=== PATIENT | male | born 1950 | race Caucasian/White ===

== ENCOUNTER 2020-12-16 09:25 | Outpatient (CLI) | payer MEDICARE, OTHER, SELFPAY ==
--- NOTE | 2020-12-16 09:30 | US_ITS ---
WS: [id number] RIGHT UPPER QUADRANT ULTRASOUND HISTORY: Abdominal pain. COMPARISON: None available. Liver: 16.3 cm in length. Mildly enlarged liver. Coarsened echotexture with mild hepatic steatosis. N o mass or bile duct dilatation. Gallbladder: Normally distended gallbladder with no stones or wall thickening. CBD: 0.3 cm Pancreas: Not visualized. Right kidney: 10.2 cm in length. Normal size and echogenicity. No hydronephrosis or mass. Aorta and IVC: Unremarkable abdominal aorta and IVC. No ascites. US/US gall bladder [id number] IMPRESSION: 1. Normal gallbladder. 2. Mild hepatomegaly and hepatic steatosis. 3. Pancreas not visualized.
== END 2020-12-16 09:26 | disposition home or self-care (01) ==
LOC: US 09:27
PROVIDERS: PCP Nurse Practitioner Family; Visit Provider Nurse Practitioner Family
DX: R10.9 Unspecified abdominal pain (principal); K80.20 Calculus of gallbladder without cholecystitis without obstruction; K21.9 Gastro-esophageal reflux disease without esophagitis; R16.0 Hepatomegaly, not elsewhere classified; E88.89 Other specified metabolic disorders
CPT/HCPCS: 76705

== ENCOUNTER 2021-04-03 17:29 | Emergency (ER) | payer MEDICARE, OTHER, SELFPAY ==
[2021-04-03 17:39] VITALS: BP 198/92; PULSE 80; RESP 18; TEMP 37; O2SAT 93; BMI 26.9
--- NOTE | 2021-04-03 17:57 | ECG_ITS ---
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 Measurements Intervals [place] Rate: 78 P: 71 DE: 170 QRS: 49 QRSD: 121 T: 58 QT: 388 QTc: 444 Interpretive Statements SINUS RHYTHM RIGHT ATRIAL ENLARGEMENT [0.3mV P WAVE] LEFT ATRIAL ENLARGEMENT [-0.15mV P WAVE IN V1/V2] LEFT VENTRICULAR HYPERTROPHY AND ST-T CHANGE [VOLTAGE CRITERIA PLUS ST/T ABNORMALITY] POSSIBLE INFERIOR MYOCARDIAL INFARCTION [30 ms Q WAVE IN II/aVF], PROBABLY OLD No previous ECG available for comparison Electronically Signed On 04-03-2021 23:49:51 CDT by Leticia Andujar M.D. [id number]
== END 2021-04-03 18:15 | disposition left against medical advice (07) ==
LOC: ER 17:58
PROVIDERS: PCP Nurse Practitioner Family
DX: Z53.21 Procedure and treatment not carried out due to patient leaving prior to being seen by health care provider (principal)
CPT/HCPCS: 93005

== ENCOUNTER 2021-12-23 12:43 | Outpatient (CLI) | payer MEDICARE, SELFPAY ==
--- NOTE | 2021-12-23 07:24 | USCV_ITS ---
Transthoracic Echo Rex Henry Age: 71 Gender: M : 1950 Exam Date: 12/23/2021 13:08 Ordering Phys: Luis Miguel Egan M.D ([email or web address]) Technologist: DANA [place] [facility] [place]: M[place]UR BP: 150 / 80 HR: 79 Rhythm: Sinus Technical Quality: Adequate MEASUREMENTS (Male / Female) Normal Values 2D ECHO LV Diastolic Diameter PLAX 6.1 cm 4.2 - 5.9 / 3.9 - 5.3 cm LV Systolic Diameter PLAX 5.2 cm IVS Diastolic Thickness 1.3 cm 0.6 - 1.0 / 0.6 - 0.9 cm IVS Systolic Thickness 1.4 cm LVPW Diastolic Thickness 1.1 cm 0.6 - 1.0 / 0.6 - 0.9 cm LVPW Systolic Thickness 0.9 cm LVOT Diameter 1.8 cm LV Ejection Fraction 2D Teich 31.2 % LA Diameter 4.0 cm LA Width 4.1 cm LA Height 5.5 cm RA Width 4.3 cm RA Height 5.3 cm Aorta at Sinotubular Diameter 2.1 cm M-MODE Aortic Annulus Diameter 2.2 cm LA Ao Ratio MM 1.9 MV E Point Septal Separation 1.2 cm DOPPLER AV Peak Velocity 122.3 cm/s LVOT Peak Velocity 79.0 cm/s AV Area Cont Eq vti 1.8 cm squared AV Area Cont Eq pk 1.7 cm squared MV Peak Velocity 95.0 cm/s MV Area PHT 4.6 cm squared Mitral E to A Ratio 1.3 MV E' Velocity 52.0 cm/s Mitral E to MV E' Ratio 17.0 Mitral E to LV E' Lateral Ratio 10.9 Mitral E to LV E' Septal Ratio 36.6 TR Peak Velocity 133.7 cm/s TR Peak Gradient 7.1 mmHg TR Mean Velocity 59.5 cm/s TR Mean Gradient 1.7 mmHg TR Velocity Time Integral 17.1 cm TV Peak E Velocity 57.0 cm/s Right Atrial Pressure 3.0 mmHg Pulmonary Artery Systolic Pressu 10.1 mmHg FINDINGS Left Ventricle Left ventricle is dilated. LV systolic function is moderate to severely reduced with EF of 30-35%. Moderate to severe global hypokinesis. Right Ventricle The right ventricle is normal in size and function. Right Atrium The right atrium is normal in size. Left Atrium The left atrium is normal in size. Mitral Valve Structurally normal mitral valve without significant stenosis or prolapse. There is mild mitral regurgitation. Aortic Valve Aortic valve is thickened. No significant stenosis. There is no aortic regurgitation. Tricuspid Valve Structurally normal tricuspid valve without significant stenosis. Trace tricuspid regurgitation. Insufficient TR jet to calculate RVSP Pulmonic Valve Structurally normal pulmonic valve without significant stenosis. There is no pulmonic regurgitation. Pericardium Normal pericardium without effusion. Aorta Normal ascending aorta dimension. CONCLUSIONS LV systolic function is moderate to severely reduced with EF of 30-35% Moderate to severe global hypokinesis. Mild mitral regurgitation Trace tricuspid regurgitation No comparison studies are available Luis Miguel Egan MD (Electronically Signed) Final Date: 02 January 2022 21:23 S
== END 2021-12-23 12:44 | disposition home or self-care (01) ==
LOC: RAD 12:50
PROVIDERS: PCP Nurse Practitioner Family; Visit Provider Internal Medicine
DX: R01.1 Cardiac murmur, unspecified (principal); I08.1 Rheumatic disorders of both mitral and tricuspid valves
CPT/HCPCS: 93306

== ENCOUNTER 2022-01-11 07:47 | Inpatient (IN) | payer MEDICARE, SELFPAY ==
[2022-01-11] VITALS (38 sets, daily range): BP systolic 80–113; BP diastolic 57–81; PULSE 87–126; RESP 7–35; TEMP 35.8–36.5; O2SAT 84–100; BMI 24.3
--- NOTE | 2022-01-11 08:02 | XRR_ITS ---
PROCEDURE INFORMATION: Exam: XR Chest Exam date and time: 01/11/2022 8:02 AM Age: 71 years old Clinical indication: Dyspnea TECHNIQUE: Imaging protocol: XR of the chest. Views: 1 view. COMPARISON: No relevant prior studies available. FINDINGS: Lungs: A few small dense nodules are noted in the right lung base, consistent with granulomata. Mild airspace opacity (atelectasis and/or pneumonia) at the left lung base. Pulmonary vasculature within normal limits. Pleural spaces: No visible pneumothorax. Small left pleural effusion. Heart/Mediastinum: Cardiomediastinal silhouette contour is within normal limits. Bones/joints: No emergent findings identified. XR/XR chest 1V portable [id number] IMPRESSION: 1. Mild airspace opacity (atelectasis and/or pneumonia) at the left lung base. 2. Small left pleural effusion.
--- NOTE | 2022-01-11 08:02 | ECG_ITS ---
[facility] Test Date: 2022-01-11 Pat Name: Rex Henry Department: Room: Gender: Male Cancer Spec: : 1950 Requested By: Dashawn Mackay Order Number: [id number] Esperanza MD: Leticia Andujar M.D. Measurements Intervals [place] Rate: 99 P: LA: QRS: -16 QRSD: 115 T: 171 QT: 361 QTc: 465 Interpretive Statements ATRIAL FIBRILLATION MODERATE VOLTAGE CRITERIA FOR LVH, CONSIDER NORMAL VARIANT [MEETS CRITERIA IN ONE OF: R(aVL), S(V1), R(V5), R(V5/V6)+S(V1)] POSSIBLE ANTERIOR MYOCARDIAL INFARCTION , OF INDETERMINATE AGE [30 ms Q WAVE IN V3/V4, OR R < 0.2 mV IN V4] INFERIOR MYOCARDIAL INFARCTION , OF INDETERMINATE AGE [40+ ms Q WAVE AND/OR ST/T ABNORMALITY IN II/aVF]. ST DEVIATION AND MODERATE T-WAVE ABNORMALITY, CONSIDER LATERAL ISCHEMIA [-0.1+mV T-WAVE IN I/aVL/V5/V6]Compared to ECG 04/03/2021 17:32:58.T-wave abnormality now present Possible ischemia now present.Sinus rhythm no longer present Atrial abnormality no longer present ST (T wave) deviation no longer present Myocardial infarct finding still present Electronically Signed On 01-11-2022 21:39:15 ENGINE REPAIRER PRODUCTION by Leticia Andujar M.D. [id number]
--- NOTE | 2022-01-11 08:06 | ED_ITS ---
HPI - General Adult General: Chief complaint: General Medical Stated complaint: WEAKNESS; DIZZY Time Seen by Provider: 01/11/22 07:58 Source: patient and EMS Mode of arrival: EMS Limitations: no limitations History of Present Illness: Patient with complaints of shortness of breath today. Patient states he has had intermittent shortness of breath for the last 3 weeks. Patient is also had complaints of paroxysmal nocturnal dyspnea, generalized weakness. Patient denies history of atrial fibrillation but has had heart murmur noticed over the past year. Patient states she does not have a history of COPD or asthma. He denies being on blood thinners. He states he had Covid in July. He does also have GERD. Oncology Account Specialist states patient had oxygen saturation of 84% on room air at home. Patient does not normally wear oxygen. Patient denies any chest pain. Patient states he fell 2-3 times a day due to generalized weakness. He states his legs just gave out on him. Patient complains of mild left knee pain and an abrasion to his right elbow but no pain in the elbow. Denies any head injury or neck or back pain. Denies any allergies to medications. he does not smoke. Patient with generalized weakness over the last 3 weeks also. Patient denies any recent chest pain either. MD complaint: Shortness of breath, generalized weakness Onset (ago): week(s) (3) Severity: moderate Relieving factors: none Exacerbating factors: other (activity) Associated symptoms: Reports dyspnea and malaise; Deny chest pain, headache(s), nausea, rash, palpitations, syncope or vomiting Treatments prior to arrival: other (oxygen) Review of Systems Const: Reports: fatigue and malaise; Denies: fever(s) or chills Eyes: Denies: change in vision ENMT: Denies: throat pain Card: Denies: chest pain, palpitations, irregular heart rhythm, edema, lightheadedness or syncope Resp: Reports: dyspnea and other (+pnd); Denies: productive cough, non-productive cough, wheezing or stridor GI: Denies: abdominal pain, nausea, vomiting or diarrhea : Denies: flank pain or dysuria Musc: Reports: other (mild pain to L ant knee); Denies: neck pain or back pain Skin/Breast: Reports: other (abrasion to r elboe); Denies: rash or pruritus Neuro: Denies: headache(s) or numbness in extremities Psych: Denies: anxiety Eduardo/Lymph: Denies: enlarged lymph nodes PFSH ED PFSH: Medical History Murmur, cardiac Family History Mother Hypertension Social History Smoking and tobacco status: never smoked Alcohol intake: never Physical Exam Const: COMMON NORMALS: no acute distress, patient oriented x3, no limitations and well nourished GENERAL APPEARANCE: cooperative HENMT: COMMON NORMALS: normocephalic and atraumatic HEAD & SCALP: normocephalic and atraumatic FACE & SINUS: normal facial exam Eye: COMMON NORMALS: EOMs intact bilaterally Neck/C-Spine: COMMON NORMALS: full ROM, no lymphadenopathy, supple and no meningeal signs GENERAL: Yes normal visual inspection Lymph: LYMPHATIC: no lymphadenopathy noted Chest: COMMONS NORMALS: normal inspection of the chest and normal palpation of entire chest wall CHEST: No Ecchymosis present and No rash Resp: COMMON NORMALS: normal respiratory effort, No retractions and clear to auscultation bilaterally EFFORT & INSPECTION: No respiratory distress AUSCULTATION: clear to auscultation bilaterally Cardio: COMMON NORMALS: regular rate and Peripheral pulses 2+ throughout JUGULAR VENOUS DISTENTION: no JVD RATE: regular rate RHYTHM: abnormal rhythm irregularly irregular HEART SOUNDS: Murmur heart sound present (2/6 murmur over mitral valve) PERIPHERAL PULSES: Peripheral pulses 2+ throughout GI: COMMON NORMALS: Normal to inspection, nondistended, normoactive bowel sounds present, Soft to palpation, non-tender, No hepatosplenomegaly present and no masses PALPATION: Yes Soft to palpation and Yes No hepatosplenomegaly present : COMMON NORMALS: Yes no CVA tenderness BLADDER/KIDNEY EXAM: Yes no CVA tenderness Back/Pelvis: COMMON NORMALS: no CVA tenderness Extremity: COMMON NORMALS: full ROM (Mild pain to left anterior knee. Normal range of motion. No deformity not) and capillary refill normal Neuro: COMMON NORMALS: patient oriented x3, CN's II-XII intact bilaterally, no focal motor deficits and no sensory deficits noted MENINGEAL SIGNS: Yes no meningeal signs Psych: COMMON NORMALS: mental status grossly normal and Normal thought process present THOUGHT PROCESS: Normal thought process present Skin: COMMON NORMALS: no rashes or lesions noted (Mild abrasion to right elbow.) GENERAL SKIN EXAM: no rashes or lesions noted (Mild abrasion to right elbow.) Course Vital Signs: Vital signs: Vital Signs Temperature 96.9 F L 01/11/22 07:49 Pulse Rate 106 H 01/11/22 10:00 Respiratory Rate 16 01/11/22 10:00 Blood Pressure 113/73 01/11/22 08:54 Pulse Oximetry 99 01/11/22 10:00 MDM - General Adult Medical Decision Making nonstemi Lab Data I reviewed the patient's lab results. : 01/11/22 08:00 01/11/22 08:00 Radiology Impressions Chest X-Ray 01/11/22 08:02 IMPRESSION: 1. Mild airspace opacity (atelectasis and/or pneumonia) at the left lung base. 2. Small left pleural effusion. Knee X-Ray 01/11/22 08:12 IMPRESSION: 1. No fractures or dislocations identified. 2. Degenerative joint disease as above. Laboratory Results WBC 9.0 10^3/uL (4.0-10.0) 01/11/22 08:00 RBC 4.41 10^6/uL (4.1-5.3) 01/11/22 08:00 Hgb 13.4 g/dL (11.7-16.6) 01/11/22 08:00 Hct 40.9 % (42.0-52.0) L 01/11/22 08:00 MCV 92.7 fl (80-94) 01/11/22 08:00 MCH 30.4 pg (28.0-34.0) 01/11/22 08:00 MCHC 32.8 g/dL (30.0-36.0) 01/11/22 08:00 RDW 12.5 % (12.1-15.1) 01/11/22 08:00 Plt Count 156 10^3/cmm (130-400) 01/11/22 08:00 MPV 11.9 fL (7.4-10.4) H 01/11/22 08:00 Neut % (Auto) 71.7 % 01/11/22 08:00 Lymph % (Auto) 16.8 % 01/11/22 08:00 Eaton % (Auto) 9.7 % 01/11/22 08:00 Eos % (Auto) 1.2 % 01/11/22 08:00 Baso % (Auto) 0.4 % 01/11/22 08:00 Neut # (Auto) 6.46 10^3/uL (1.8-7.7) 01/11/22 08:00 Lymph # (Auto) 1.5 10^3/uL (0.8-4.8) 01/11/22 08:00 Eaton # (Auto) 0.9 10^3/uL (0.2-0.9) 01/11/22 08:00 Eos # (Auto) 0.1 10^3/uL (0.0-0.8) 01/11/22 08:00 Baso # (Auto) 0.0 10^3/uL (0.0-0.1) 01/11/22 08:00 Nucleated RBC % (auto) 0 % 01/11/22 08:00 Nucleated RBCs # 0.0 /100WBC 01/11/22 08:00 APTT 28.2 SECONDS (23.9-36.7) 01/11/22 08:23 Sodium 133 mmol/L (136-145) L 01/11/22 08:00 Potassium 4.2 mmol/L (3.5-5.1) 01/11/22 08:00 Chloride 93 mmol/L (98-107) L 01/11/22 08:00 Carbon Dioxide 31 mmol/L (22-29) H 01/11/22 08:00 Anion Gap 13.2 (5-19) 01/11/22 08:00 BUN 20 mg/dL (8-23) 01/11/22 08:00 Creatinine 0.8 mg/dL (0.7-1.2) 01/11/22 08:00 GFR Calculation Not Reportable 01/11/22 08:00 Glucose 150 mg/dL (65-115) H 01/11/22 08:00 Calculated Osmolality 281 mOsm/kg (285-295) L 01/11/22 08:00 Calcium 10.8 mg/dL (8.5-10.5) H 01/11/22 08:00 Troponin T Baseline 46 ng/L (0-15) H 01/11/22 08:00 Troponin T 120 Minute 55.96 ng/L (0-15) H 01/11/22 10:05 Delta Troponin T 9.96 ABS# (0-10) 01/11/22 10:05 NT-Pro-B Natriuret Pep 9400 pg/mL (0-125) H 01/11/22 08:00 SARS-CoV-2 Ag (Rapid) Negative (Negative) 01/11/22 08:24 Imaging Data CXR: My impression: Chest x-ray shows mild pulmonary edema, mild left pleural effusion. No rib fracture seen. No pneumothorax. Xray Ortho: My impression: Left knee x-ray shows moderate osteoarthritis. No acute fracture or dislocation . EKG Data EKG 1: I personally reviewed and interpreted this EKG as follows: EKG interpretation date: 01/11/22 EKG interpretation time: 07:58 Prior EKG tracings: available for review (04/03/21 nsr, ivcd, lvh) Interpretation: Atrial fibrillation rate controlled at 99. Nonspecific ST-T changes throughout. Patient has bowing of the ST segment in V3 consistent with possible myocardial injury. Left axis. Left IVCD, T wave inversions in lead I, aVL and V6. I sent EKG to proposal manager for review. Dr. Andujar stated EKG may be consistent with a recent [place] but does not see an acute [place]. Computer generated interpretation: Chest X-Ray 01/11/22 08:02 IMPRESSION: 1. Mild airspace opacity (atelectasis and/or pneumonia) at the left lung base. 2. Small left pleural effusion. Knee X-Ray 01/11/22 08:12 IMPRESSION: 1. No fractures or dislocations identified. 2. Degenerative joint disease as above. EKG 2: I personally reviewed and interpreted this EKG as follows: EKG interpretation date: 01/11/22 EKG interpretation time: 11:08 Prior EKG tracings: available for review Interpretation: EKG shows atrial fibrillation with rapid ventricular response with heart rate of 108. Very similar presentation to previous EKG. There is still mild bowing of ST segment in V3, LVH, nonspecific ST-T changes. T wave versions in V5 V6 and lead I. Normal axis. IVCD. Computer generated interpretation: Chest X-Ray 01/11/22 08:02 IMPRESSION: 1. Mild airspace opacity (atelectasis and/or pneumonia) at the left lung base. 2. Small left pleural effusion. Knee X-Ray 01/11/22 08:12 IMPRESSION: 1. No fractures or dislocations identified. 2. Degenerative joint disease as above. Other Data 2I discussed case with hospitalist Dr. Ellington. He will place patient in cardiac stepdown unit. I attempted to call Dr. Andujar proposal manager back to let him know that he is a consult and he has unavailable at this time. Message was left. Pharmacist will place order for 4000 units of heparin IV and heparin protocol for non-STEMI. Critical Care Time Critical Care Time: Critical Care Time: Yes Total Critical Care Time: 45 Attestation: IV heparin, care of non-STEMI. See orders. Discharge Plan Discharge Patient Disposition: Admitted As Inpatient Clinical Impression: Non-ST elevated myocardial infarction (non-STEMI), Acute dyspnea, Paroxysmal atrial fibrillation Congestive heart failure with left ventricular diastolic dysfunction Qualifiers: Congestive heart failure chronicity: acute Qualified Code(s): I50.31 - Acute diastolic (congestive) heart failure Condition: Stable Coding Level of Care Code ED Delivery Assistant for Valarie Fwessence Exam Comprehensive
--- NOTE | 2022-01-11 08:12 | XRR_ITS ---
PROCEDURE INFORMATION: Exam: XR Left Knee Exam date and time: 01/11/2022 8:12 AM Age: 71 years old Clinical indication: Pain and injury or trauma; Fall; Blunt trauma; Knee; Left; Additional info: Pain, fall TECHNIQUE: Imaging protocol: XR Left knee. Views: 3 views. COMPARISON: No relevant prior studies available. FINDINGS: Bones/joints: No fractures or dislocations identified. Mild degenerative joint disease involving the medial compartment. Moderate degenerative joint disease involving the patellofemoral compartment. Soft tissues: No subcutaneous gas or radiopaque foreign body identified. XR/XR knee LT 3V* [id number] IMPRESSION: 1. No fractures or dislocations identified. 2. Degenerative joint disease as above.
[2022-01-11 08:18] LABS: Basophils % 0.4 %; Eosinophils # 0.1 10^3/uL (0.0-0.8); Eosinophils % 1.2 %; Hematocrit 40.9 % (42.0-52.0); Hemoglobin 13.4 g/dL (11.7-16.6); Lymphocytes # 1.5 10^3/uL (0.8-4.8); Lymphocytes % 16.8 %; Mean Corpuscular HGB Conc 32.8 g/dL (30.0-36.0); Mean Corpuscular Hemoglobin 30.4 pg (28.0-34.0); Mean Corpuscular Volume 92.7 fl (80-94); Mean Platelet Volume 11.9 fL (7.4-10.4); Monocytes # 0.9 10^3/uL (0.2-0.9); Monocytes % 9.7 %; Neutrophils # 6.46 10^3/uL (1.8-7.7); Neutrophils % 71.7 %; Nucleated Red Blood Cells % 0 %; Platelet Count 156 10^3/cmm (130-400); Red Blood Count 4.41 10^6/uL (4.1-5.3); Red Cell Distribution Width 12.5 % (12.1-15.1)
[2022-01-11] MEDS: aspirin 81 mg Chew Tablet 324 MG PO (08:21)
[2022-01-11 08:39] LABS: Partial Thromboplastin Time 28.2 SECONDS (23.9-36.7)
[2022-01-11 08:41] LABS: Troponin(5th) Baseline 46 ng/L (0-15)
[2022-01-11 08:49] LABS: Anion Gap 13.2 (5-19); Blood Urea Nitrogen 20 mg/dL (8-23); Calcium 10.8 mg/dL (8.5-10.5); Carbon Dioxide 31 mmol/L (22-29); Chloride 93 mmol/L (98-107); Glucose 150 mg/dL (65-115); NT Pro B Type Natriuretic Pept 9400 pg/mL (0-125); Osmolality Calculated 281 mOsm/kg (285-295); Potassium 4.2 mmol/L (3.5-5.1); Sodium 133 mmol/L (136-145)
[2022-01-11] MEDS: FUROsemide 10 mg/mL SDV 4mL 30 MG IVP (08:53)
[2022-01-11 09:28] LABS: SARS Covid-2 Antigen Negative (Negative)
--- NOTE | 2022-01-11 10:02 | ECG_ITS ---
[facility] Test Date: 2022-01-11 Pat Name: Rex Henry Department: Room: Gender: Male Sonar Technician: : 1950 Requested By: Dashawn Mackay Order Number: [id number] Esperanza MD: Leticia Andujar M.D. Measurements Intervals [place] Rate: 113 P: [place]: QRS: 28 QRSD: 112 T: 183 QT: 329 QTc: 452 Interpretive Statements ATRIAL FIBRILLATION WITH RAPID VENTRICULAR RESPONSE VOLTAGE CRITERIA FOR LVH [MEETS CRITERIA IN ONE OF: R(aVL), S(V1), R(V5), R(V5/V6)+S(V1)] POSSIBLE ANTERIOR MYOCARDIAL INFARCTION , OF INDETERMINATE AGE [30 ms Q WAVE IN V3/V4, OR R < 0.2 mV IN V4] INFERIOR MYOCARDIAL INFARCTION , PROBABLY OLD [40+ ms Q WAVE AND/OR ST/T ABNORMALITY IN II/aVF] MODERATE T-WAVE ABNORMALITY, CONSIDER LATERAL ISCHEMIA [-0.1+ mV T-WAVE IN I/aVL/V5/V6] INTERPRETATION BASED ON A DEFAULT AGE OF 40 YEARS Compared to ECG 01/11/2022 07:57:11 No significant changes Electronically Signed On 01-12-2022 17:16:42 CARBON BRUSHES ASSEMBLER by Leticia Andujar M.D. [email or web address]
[2022-01-11 10:41] LABS: Troponin 5 2HR 55.96 ng/L (0-15)
[2022-01-11 10:52] LABS: Troponin 5 2HR Delta 9.96 ABS# (0-10)
--- NOTE | 2022-01-11 11:13 | PM.HP ---
Providers/Chief Complaint Admitting Physician: Chandana Raymundo MD Primary Care Provider: Aissatou Acuna APN Chief Complaint: WEAKNESS; DIZZY History of Present Illness Rex Henry is a 71 year old male with past medical history of hypertension, Covid 19 pneumonia, diabetes was on Metformin for a long time, has stopped taking sometime back, history of coronary artery disease (according to the patient prior angiogram done long time back had shown lesions ) Came in with chief complaint of worsening shortness of breath with exertion going on for the last 3 weeks, He denies any associated chest pain, he is also complaining of worsening fatigue, has also been recently experiencing palpitation, as well as bilateral lower extremity swelling. According to the patient he has not been feeling quite well after his brush Covid 19 back in July 2021. He denies any fever, cough, headache, nausea vomiting, abdominal pain, urinary complaints. Upon arrival in the ER he was worked up for above-mentioned complaint: Imaging studies: XR chest: Mild airspace opacity (atelectasis and/or pneumonia) at the left lung base. Pulmonary vasculature within normal limits. Pleural spaces: No visible pneumothorax. Small left pleural effusion. EKG: A. fib with RVR Recent 2D echo done as an outpatient: LV systolic function is moderate to severely reduced with EF of ?30-35% Moderate to severe global hypokinesis. Mild mitral regurgitation Trace tricuspid regurgitation. Pertinent labs: WBC : 9 , H&H:13/40 , PLT : 156 , serum sodium 133 serum potassium 4.2, serum bicarb 31, BUN and serum creatinine 20 / 0.8 , baseline troponin 46, 2-hour troponin 55, 2H D : 9.96 , 6 H T : 53 , 6 H D : 7.51 , PRO BNP : 9400 Urinalysis clean rapid Covid negative Patient was given a dose of Lasix 30 in the ER. Cardiology was consulted by the ER physician Review of Systems General: Reports: 10 or more systems reviewed and unremarkable except in HPI and below Const: Denies: fever(s), chills, body aches, change in appetite or diaphoresis Card: Reports: lightheadedness and acrocyanosis; Denies: leg pain with exertion Resp: Denies: wheezing or pain on inspiration GI: Denies: abdominal pain, nausea, vomiting, diarrhea or constipation : Denies: flank pain or difficulty urinating Musc: Denies: back pain, extremity pain or extremity swelling Neuro: Denies: headache(s), difficulty walking or confusion Medications/Allergies Home Medications Medication Instructions Recorded Confirmed Last Taken Type allopurinol 300 mg tablet 300 mg PO DAILY PRN 10/08/21 01/11/22 Unknown History aspirin 81 mg tablet,delayed 81 mg PO DAILY 10/08/21 01/11/22 01/10/22 History release (Adult Low Dose Aspirin) hydrochlorothiazide 25 mg tablet 25 mg PO DAILY 10/08/21 01/11/22 01/10/22 History lisinopril 20 mg tablet 20 mg PO BID 10/08/21 01/11/22 01/11/22 History metoprolol succinate 50 mg 100 mg PO BID 10/08/21 01/11/22 01/11/22 History tablet,extended release 24 hr naproxen sodium 220 mg tablet 220 mg PO BID PRN 10/08/21 01/11/22 Unknown History (Aleve) tamsulosin 0.4 mg capsule (Flomax) 0.4 mg PO DAILY 10/08/21 01/11/22 01/10/22 History ropinirole 1 mg tablet 1 mg PO BEDTIME PRN 01/11/22 01/11/22 Unknown History Allergies Allergy/AdvReac Type Severity Reaction Status Date / Time No Known Allergies Allergy Verified 10/08/21 13:46 PFSH Acute PFSH: Medical History Murmur, cardiac Family History Mother Hypertension Social History Smoking and tobacco status: never smoked Alcohol intake: never Vitals/I&O/Wt Last Vital Signs Temp 96.9 F L 01/11/22 07:49 Pulse 106 H 01/11/22 10:00 Resp 16 01/11/22 10:00 BP 113/73 01/11/22 08:54 Pulse Ox 99 01/11/22 10:00 Weight last 48 hrs Weight 86.183 kg Physical Exam Const: COMMON NORMALS: patient oriented x3 HENMT: COMMON NORMALS: normocephalic and atraumatic HEAD & SCALP: normocephalic and atraumatic Resp: COMMON NORMALS: normal respiratory effort, No retractions, No use of accessory muscles and clear to auscultation bilaterally EFFORT & INSPECTION: Yes symmetric chest movement AUSCULTATION: clear to auscultation bilaterally Cardio: RATE: regular rate RHYTHM: regular rhythm HEART SOUNDS: S1 normal heart sound present and S2 normal heart sound present PERIPHERAL PULSES: Peripheral pulses 2+ throughout OTHER: Irregularly irregular rhythm, S1-S2 with variable intensity, PSM in mitral area GI: COMMON NORMALS: Normal to inspection, nondistended, normoactive bowel sounds present, Soft to palpation, non-tender, No hepatosplenomegaly present and no masses AUSCULTATION: Yes normoactive bowel sounds PALPATION: Yes Soft to palpation and Yes No hepatosplenomegaly present RECTAL EXAM: Yes deferred Extremity: COMMON NORMALS: no clubbing, cyanosis or edema and no pedal edema Neuro: COMMON NORMALS: patient oriented x3 Data : 01/11/22 08:00 01/11/22 08:00 A&P Assessment and plan (1) Atrial fibrillation: Status: Acute (2) NSTEMI (non-ST elevated myocardial infarction): Status: Acute (3) HFrEF (heart failure with reduced ejection fraction): Status: Acute (4) HTN (hypertension): Status: Acute (5) Gout: Status: Acute Plan 71 year old male with past medical history of hypertension, Covid 19 pneumonia, diabetes came in with worsening shortness of breath and fatigue. Assessment # Newly diagnosed cardiomyopathy with currently decompensated HFrEF : Intake output charting Daily weight K>4,MG >2 Telemetry monitoring Continue Lasix 40 IV daily Appreciate cardiology input Possibly cardiac cath #Newly diagnosed atrial fibrillation currently with RVR TSH Continue metoprolol 50 mg p.o. twice daily Continue metoprolol 5 mg IV Q4H as needed for heart rate greater than 110 Lovenox for therapeutic anticoagulation #NSTEMI type II: Likely secondary to A. fib with RVR and decompensated heart failure Continue aspirin #History of hypertension: Continue hydrochlorothiazide Lisinopril on hold #History of diabetes: Follow A1c Monitor fasting blood glucose SSI FSG #DVT Prophylaxis: On Lovenox #CODE STATUS: Full code Attestations Medical Necessity Statement*: Patient is to be in hospital for management of heart failure, elevated troponin, A. fib.Anticipated length of stay greater than 2 midnights. Time Spent in Patient Care: Greater than 35 minutes (>than 50% of time spent in counselling and/or direct pt care on unit). 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
--- NOTE | 2022-01-11 11:25 | PC.NURSE ---
REPORT TO KARIS SAWYER RN ON CSU
[2022-01-11 11:52] LABS: Bilirubin Urine Neg (Negative); Blood Urine Neg (Negative); Glucose Urine UA Norm (Normal); Ketones Urine Negative (Negative); Leukocyte Esterase Urine Negative (Negative); Nitrate Urine Negative (Negative); Protein Urine Trace (Negative); Urine Appearance Clear (CLEAR); Urine Color Yellow (Yellow); Urobilinogen Urine Norm (Negative); pH Urine 7 (5-7)
[2022-01-11 11:53] LABS: Add Urine Microscopic? YES
[2022-01-11 11:55] LABS: Add Urine Culture? No; Hyaline Casts Urine RARE /lpf
[2022-01-11] MEDS: metoprolol succinate ER (24 HR) 50 mg Tablet PO (12:16)
--- NOTE | 2022-01-11 12:17 | PC.NURSE ---
metoprolol given at [address] Ellington at bedside, requesting that it would be given now.
[2022-01-11] MEDS: enoxaparin 100 mg/mL Syringe 90 MG SUBCUT (13:09)
--- NOTE | 2022-01-11 14:02 | ECG_ITS ---
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 Measurements Intervals [place] Rate: 107 P: VT: QRS: -21 QRSD: 118 T: 150 QT: 360 QTc: 481 Interpretive Statements ATRIAL FIBRILLATION WITH RAPID VENTRICULAR RESPONSE MODERATE VOLTAGE CRITERIA FOR LVH, CONSIDER NORMAL VARIANT [MEETS CRITERIA IN ONE OF: R(aVL), S(V1), R(V5), R(V5/V6)+S(V1)] POSSIBLE ANTERIOR MYOCARDIAL INFARCTION , OF INDETERMINATE AGE [30 ms Q WAVE IN V3/V4, OR R < 0.2 mV IN V4] INFERIOR MYOCARDIAL INFARCTION , OF INDETERMINATE AGE [40+ ms Q WAVE AND/OR ST/T ABNORMALITY IN II/aVF] MODERATE T-WAVE ABNORMALITY, CONSIDER LATERAL ISCHEMIA [-0.1+ mV T-WAVE IN I/aVL/V5/V6] Compared to ECG 01/11/2022 11:02:32 No significant changes Electronically Signed On 01-12-2022 17:17:42 GEAR TOOTH 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 [email or web address]
[2022-01-11 15:17] LABS: Troponin 5 6HR 53.51 ng/L (0-15)
[2022-01-11 15:25] LABS: Troponin 5 6HR Delta 7.51 ng/L (0-12)
[2022-01-11] MEDS: FUROsemide 10 mg/mL SDV 4mL 40 MG IVP (17:04)
[2022-01-11] MEDS: metoprolol tartrate 1 mg/1 mL SDV 5 mL 5 MG IVP (18:01)
--- NOTE | 2022-01-11 18:01 | P.CONIM_ITS ---
Providers/Reason For Consult Consulting Physician/Specialty*: LETICIA Andujar MD/cardiology Reason for Consult*: Patient with abnormal EKG/heart failure/atrial fibrillation Requesting Physician: Dr Ellington Attending Physician: Zackary Ellington MD Primary Care Provider: Aissatou Acuna APN History of Present Illness History of Present Illness Rex Henry is a 71 year old male presents with complaints of shortness of breath, generalized weakness and fatigue. According to the patient, the symptoms have been going on for the last 1 month or so but she has been getting worse lately. This morning he was getting extremely short of breath to the extent that he fell down twice at home. Was finding it difficult to navigate. For these complaints, his son called the ambulance and the patient was brought to the hospital. This patient is known to have atherosclerotic heart disease and heart failure?. Approximately 20 years ago, he had a cardiac catheterization at the [facility] in [facility]. At that time, he was advised for PCI. The patient refused because of the financial situation. He went for chelation treatment for a year, even though it was recommended only for 10 weeks. As per the patient, his symptoms got better. He has been doing okay up until July of last year when he had a COVID-19 infection. Both he and his had the infection. They waited for a week or so at home. Because of worsening shortness of breath, both of them were admitted to the hospital. Unfortunately his after a week of being in the hospital. Following the hospital discharge, this patient felt okay for a couple of months. He has been having intermittent episodes of shortness of breath and cough. For the last 1 month, he has been having episodes of paroxysmal nocturnal dyspnea. He also started noticing swelling of the lower extremities. He had a dry cough. No fever or chills. He was referred to Dr. Egan a month ago by his primary care provider for evaluation of a heart murmur and uncontrolled blood pressure. The echocardiogram at that time revealed a mild mitral regurgitation. His LV ejection fraction was found to be 30 to 35%. He had diffuse hypokinesia of the left ventricle. His EKG revealed normal sinus rhythm. Patient denies any chest pain or chest tightness. No palpitation. Dizziness and unsteadiness as mentioned above. He has a history of high blood pressure and type 2 diabetes for more than 20 years. He was initially treated with Metformin for the diabetes. With her diet control alone, the blood sugar came down. For that reason, the patient took himself off the Metformin. No history of dyslipidemia. His mother had a heart attack in her 70s. 3 of his brothers are known to have heart problems started in the 60s. 2 of them had open heart surgery. No other relevant family history. Denies any smoking or alcohol abuse. Review of Systems Const: Reports: fatigue, malaise and other (Generalized weakness); Denies: fever(s) or chills Eyes: Denies: change in vision ENMT: Denies: throat pain Card: Denies: chest pain, palpitations, irregular heart rhythm, edema, lightheadedness or syncope Resp: Reports: dyspnea, non-productive cough and other (+pnd); Denies: productive cough, wheezing or stridor GI: Denies: abdominal pain, nausea, vomiting or diarrhea : Denies: flank pain or dysuria Musc: Reports: other (mild pain to L ant knee); Denies: neck pain or back pain Skin/Breast: Reports: other (abrasion to r elboe); Denies: rash or pruritus Neuro: Denies: headache(s) or numbness in extremities Psych: Denies: anxiety Eduardo/Lymph: Denies: enlarged lymph nodes Medications/Allergies Home Medications Medication Instructions Recorded Confirmed Last Taken Type allopurinol 300 mg tablet 300 mg PO DAILY PRN 10/08/21 01/11/22 Unknown History aspirin 81 mg tablet,delayed 81 mg PO DAILY 10/08/21 01/11/22 01/10/22 History release (Adult Low Dose Aspirin) hydrochlorothiazide 25 mg tablet 25 mg PO DAILY 10/08/21 01/11/22 01/10/22 History lisinopril 20 mg tablet 20 mg PO BID 10/08/21 01/11/22 01/11/22 History metoprolol succinate 50 mg 100 mg PO BID 10/08/21 01/11/22 01/11/22 History tablet,extended release 24 hr naproxen sodium 220 mg tablet 220 mg PO BID PRN 10/08/21 01/11/22 Unknown History (Aleve) tamsulosin 0.4 mg capsule (Flomax) 0.4 mg PO DAILY 10/08/21 01/11/22 01/10/22 History ropinirole 1 mg tablet 1 mg PO BEDTIME PRN 01/11/22 01/11/22 Unknown History Allergies Allergy/AdvReac Type Severity Reaction Status Date / Time No Known Allergies Allergy Verified 10/08/21 13:46 Current Medications Generic Name Dose Route Start Last Admin Trade Name Freq PRN Reason Stop Dose Admin Enoxaparin Sodium 90 mg 01/11/22 13:00 01/11/22 13:09 Enoxaparin 100 Mg/Ml Syringe 1 mg/kg (90 mg) 90 mg SUBCUT Administration Q12H PAPA Metoprolol Succinate 50 mg 01/11/22 12:00 01/11/22 12:16 Metoprolol Succinate Er (24 Hr) 50 Mg Tablet PO 50 mg BID PAPA Administration PFSH Acute PFSH: Medical History (Updated 01/11/22 @ 18:59 by Leticia Andujar MD) Acute on chronic diastolic (congestive) heart failure Atherosclerotic heart disease Benign essential hypertension with target blood pressure below 140/90 GERD (gastroesophageal reflux disease) Murmur, cardiac Type 2 diabetes mellitus Family History Mother Hypertension Social History Smoking and tobacco status: never smoked Alcohol intake: never Vitals/I&O/Wt Last Vital Signs Temp 97.6 F 01/11/22 15:54 Pulse 97 01/11/22 15:54 Resp 16 01/11/22 15:54 BP 96/70 01/11/22 15:54 Pulse Ox 92 01/11/22 15:54 01/11/22 01/11/22 01/11/22 06:59 14:59 22:59 Intake Total 100 / 100 Output Total 300 / 300 625 / 925 Balance -300 / -300 -525 / -825 Weight last 48 hrs Weight 189 lb 8 oz Weight 190 lb Physical Exam Narrative: GENERAL: The patient is alert and oriented times three. Not in any acute distress. Slightly tachypneic HEENT: No significant pallor, icterus or lymphadenopathy. The pupils are reactant to light. Oral cavity: There are no mucous membrane lesions. Funduscopic examination: The fundus is not visualized NECK: Trachea appears to be central. No masses noted. No JVD or thyromegaly appreciated. No carotid bruit. RESPIRATORY: Chest is symmetrical. No intercostals muscle retraction or any accessory muscle activation. There is no chest wall tenderness. Breath sounds a re heard bilaterally. Few fine crackles at the bases. Density of breath sounds are slightly diminished in the bases BREASTS: Deferred. HEART: The PMI cannot be palpated. First heart sound is variable. Second heart sound is normal. Ejection systolic murmur of grade 4/6 in the aortic area with the transmission to the carotids. No diastolic murmurs. ABDOMEN: No vessel pulsations or distention. No tenderness. No organomegaly appreciated. No abdominal bruit. Bowel sounds are normally heard. : Deferred. RECTAL: Deferred. LYMPHATIC: No lymphadenopathy noted in the neck or groin. EXTREMITIES: 1+ edema both lower extremities. No cyanosis. Extremities are relatively cold. Dorsalis pedis and posterior tibial pulses are weak bilaterally MUSCULOSKELETAL: No acute joint deformities or swelling SKIN: There are no significant scars or skin rash noted. NEUROPSYCHIATRIC: The patient is alert and oriented x3. Appears to be in a good mood. The higher functions are grossly within normal limits. No tremors or rigidity noted. Data : 01/11/22 08:00 01/11/22 08:00 Other Labs: Laboratory Last Values WBC 9.0 10^3/uL (4.0-10.0) 01/11/22 08:00 RBC 4.41 10^6/uL (4.1-5.3) 01/11/22 08:00 Hgb 13.4 g/dL (11.7-16.6) 01/11/22 08:00 Hct 40.9 % (42.0-52.0) L 01/11/22 08:00 MCV 92.7 fl (80-94) 01/11/22 08:00 MCH 30.4 pg (28.0-34.0) 01/11/22 08:00 MCHC 32.8 g/dL (30.0-36.0) 01/11/22 08:00 RDW 12.5 % (12.1-15.1) 01/11/22 08:00 Plt Count 156 10^3/cmm (130-400) 01/11/22 08:00 MPV 11.9 fL (7.4-10.4) H 01/11/22 08:00 Neut % (Auto) 71.7 % 01/11/22 08:00 Lymph % (Auto) 16.8 % 01/11/22 08:00 [place] % (Auto) 9.7 % 01/11/22 08:00 Eos % (Auto) 1.2 % 01/11/22 08:00 Baso % (Auto) 0.4 % 01/11/22 08:00 Neut # (Auto) 6.46 10^3/uL (1.8-7.7) 01/11/22 08:00 Lymph # (Auto) 1.5 10^3/uL (0.8-4.8) 01/11/22 08:00 [place] # (Auto) 0.9 10^3/uL (0.2-0.9) 01/11/22 08:00 Eos # (Auto) 0.1 10^3/uL (0.0-0.8) 01/11/22 08:00 Baso # (Auto) 0.0 10^3/uL (0.0-0.1) 01/11/22 08:00 Nucleated RBC % (auto) 0 % 01/11/22 08:00 Nucleated RBCs # 0.0 /100WBC 01/11/22 08:00 APTT 28.2 SECONDS (23.9-36.7) 01/11/22 08:23 Sodium 133 mmol/L (136-145) L 01/11/22 08:00 Potassium 4.2 mmol/L (3.5-5.1) 01/11/22 08:00 Chloride 93 mmol/L (98-107) L 01/11/22 08:00 Carbon Dioxide 31 mmol/L (22-29) H 01/11/22 08:00 Anion Gap 13.2 (5-19) 01/11/22 08:00 BUN 20 mg/dL (8-23) 01/11/22 08:00 Creatinine 0.8 mg/dL (0.7-1.2) 01/11/22 08:00 GFR Calculation Not Reportable 01/11/22 08:00 Glucose 150 mg/dL (65-115) H 01/11/22 08:00 Calculated Osmolality 281 mOsm/kg (285-295) L 01/11/22 08:00 Calcium 10.8 mg/dL (8.5-10.5) H 01/11/22 08:00 Troponin T Baseline 46 ng/L (0-15) H 01/11/22 08:00 Troponin T 120 Minute 55.96 ng/L (0-15) H 01/11/22 10:05 Delta Troponin T 9.96 ABS# (0-10) 01/11/22 10:05 Troponin T Hi Sens 6Hr 53.51 ng/L (0-15) H 01/11/22 14:25 Troponin T Hi Sens 6Hr Delta 7.51 ng/L (0-12) 01/11/22 14:25 NT-Pro-B Natriuret Pep 9400 pg/mL (0-125) H 01/11/22 08:00 Urine Color Yellow (Yellow) 01/11/22 10:55 Urine Appearance Clear (CLEAR) 01/11/22 10:55 Urine pH 7 (5-7) 01/11/22 10:55 Ur Specific [place] 1.010 (1.005-1.030) 01/11/22 10:55 Urine Protein Trace (Negative) 01/11/22 10:55 Urine Glucose (UA) Norm (Normal) 01/11/22 10:55 Urine Ketones Negative (Negative) 01/11/22 10:55 Urine Blood Neg (Negative) 01/11/22 10:55 Urine Nitrate Negative (Negative) 01/11/22 10:55 Urine Bilirubin Neg (Negative) 01/11/22 10:55 Urine Urobilinogen Norm mg/dL (Negative) 01/11/22 10:55 Ur Leukocyte Esterase Negative (Negative) 01/11/22 10:55 Urine RBC None /hpf (0-2) 01/11/22 10:55 Urine WBC None /hpf (0-5) 01/11/22 10:55 Ur Squamous Epith Cells None /hpf (0-5) 01/11/22 10:55 Amorphous Sediment Not Reportable 01/11/22 10:55 Urine Bacteria None /hpf (NONE) 01/11/22 10:55 Hyaline Casts Rare /lpf 01/11/22 10:55 SARS-CoV-2 Ag (Rapid) Negative (Negative) 01/11/22 08:24 Echo: My impression: ?LV systolic function is moderate to severely reduced with EF of ?30-35% ?Moderate to severe global hypokinesis. ?Mild mitral regurgitation ?Trace tricuspid regurgitation ?No comparison studies are available EKG 1: My Interpretation: Atrial fibrillation rapid ventricular rate of [address] elevations in lead V1 to V4 with a poor R wave progression. Nonspecific IVCD. Nonspecific ST-T changes. Features of possible old inferior wall myocardial infarction. EKG computer-generated impression: Chest X-Ray 01/11/22 08:02 IMPRESSION: 1. Mild airspace opacity (atelectasis and/or pneumonia) at the left lung base. 2. Small left pleural effusion. Knee X-Ray 01/11/22 08:12 IMPRESSION: 1. No fractures or dislocations identified. 2. Degenerative joint disease as above. A&P Assessment and plan (1) New onset atrial fibrillation: Patient is EKG appeared to be new compared to EKG from March of last year. The exact onset of the atrial fibrillation is not known. Currently he is with rapid ventricular rate. His blood pressure also seem to be running low in the 80s and 90s. At this point, I may start him on digoxin for rate control. He also need to be on anticoagulation. It may be appropriate to start him on Lovenox which can be switched to oral anticoagulants later on. Status: Acute (2) HFrEF (heart failure with reduced ejection fraction): Patient's elevation fraction was around 30 to 35% by echocardiogram at the beginning of this month. Patient may be treated with IV diuretics. Also may be started on spironolactone. In view of his elevated blood glucose, I may start him on Jardiance as well Status: Acute (3) Aortic valve stenosis: Clinically he seems to have at least moderate aortic valve stenosis. The echocardiogram need to be repeated to reevaluate the aortic valve. Status: Acute (4) Recent ST elevation myocardial infarction (STEMI): There was no significant troponin T elevation at 2 hours and 6 hours. Most likely this patient had an ischemic event sometime in the recent past. Because of the history of atherosclerotic heart disease in the past, he requires a repeat cardiac catheterization to reevaluate the coronary status and decide on further management. This may be considered once the heart failure is estrella ropriately treated and the heart rate is under control. Status: Acute (5) HTN (hypertension): Currently this patient is hypotensive. May hold off for any blood pressure lowering medications at this point. Status: Acute Plan The other problems are History of type 2 diabetes History of GERD May start him on spironolactone 25 mg p.o. daily and Jardiance 10 mg p.o. daily. His heart rate may be controlled with digoxin 0.25 mg every 6 hours x3 followed by 0.125 mg p.o. daily. Based on his clinical progress, further recommendations will be made. Thank you for the opportunity to evaluate this patient and make these recommendations Consult Attestations Medical Necessity Statement: Patient requires continued hospital stay for close monitoring and further management Coding Level of Care Code Acute Mgmt Analyst for Valarie Galeana History Detailed Exam Detailed Diagnoses New onset atrial fibrillation I48.91 HFrEF (heart failure with reduced ejection fraction) I50.[address] elevation myocardial infarction (STEMI) HTN (hypertension) I10 Aortic valve stenosis I35.0
[2022-01-11] MEDS: digoxin 250 mcg/ml INJ 2 mL IVP (18:34)
[2022-01-12] VITALS (65 sets, daily range): BP systolic 77–130; BP diastolic 50–90; PULSE 82–126; RESP 4–94; TEMP 36.5–36.9; O2SAT 85–99
[2022-01-12] MEDS: diphenhydrAMINE 50 mg Capsule PO ×2 (00:09→20:31)
[2022-01-12] MEDS: famotidine 20 mg Tablet PO ×3 (00:09→20:31)
[2022-01-12] MEDS: digoxin 250 mcg/ml INJ 2 mL IVP ×4 (00:09→20:30)
[2022-01-12] MEDS: enoxaparin 100 mg/mL Syringe 90 MG SUBCUT ×2 (00:10→13:49)
[2022-01-12 03:13] LABS: Basophils # 0.1 10^3/uL (0.0-0.1); Basophils % 0.5 %; Eosinophils # 0.2 10^3/uL (0.0-0.8); Hematocrit 38.6 % (42.0-52.0); Hemoglobin 12.7 g/dL (11.7-16.6); Lymphocytes # 2.8 10^3/uL (0.8-4.8); Lymphocytes % 27.6 %; Mean Corpuscular HGB Conc 32.9 g/dL (30.0-36.0); Mean Corpuscular Hemoglobin 30.5 pg (28.0-34.0); Mean Corpuscular Volume 92.6 fl (80-94); Mean Platelet Volume 11.7 fL (7.4-10.4); Monocytes # 1.2 10^3/uL (0.2-0.9); Monocytes % 11.4 %; Neutrophils # 5.96 10^3/uL (1.8-7.7); Neutrophils % 58.3 %; Nucleated Red Blood Cells % 0 %; Platelet Count 148 10^3/cmm (130-400); Red Blood Count 4.17 10^6/uL (4.1-5.3); Red Cell Distribution Width 12.5 % (12.1-15.1); White Blood Count 10.2 10^3/uL (4.0-10.0)
[2022-01-12 03:44] LABS: Estmated Average Glucose 123; Hemoglobin A1C 5.9 % (4.0-6.0)
[2022-01-12 03:47] LABS: Anion Gap 14.5 (5-19); Blood Urea Nitrogen 22 mg/dL (8-23); Calcium 9.9 mg/dL (8.5-10.5); Carbon Dioxide 30 mmol/L (22-29); Chloride 95 mmol/L (98-107); Chol HDL Ratio 4.24 mg/dL (1.0-5.00); Cholesterol 161 mg/dL (0-200); Glucose 133 mg/dL (65-115); HDL Cholesterol 38 mg/dL (60-100); LDL Cholesterol Calculated 110 mg/dL (50-129); LDL HDL Ratio 2.89 RATIO (0.00-3.22); Magnesium 1.5 mg/dL (1.7-2.3); Osmolality Calculated 285 mOsm/kg (285-295); Potassium 4.5 mmol/L (3.5-5.1); Sodium 135 mmol/L (136-145); Thyroid Stimulating Hormone 2.12 uIU/mL (0.27-4.20); Triglycerides 64 mg/dL (0-150)
[2022-01-12] MEDS: FUROsemide 10 mg/mL SDV 4mL 40 MG IVP (06:19)
--- NOTE | 2022-01-12 07:42 | P.PN_ITS ---
Subjective Subjective: Was seen and examined this morning continues to be in A. fib, with heart rate ranging in 110s, Denies any symptoms when he is resting, was not able to lie flat last night, started coughing. Good urine output with Lasix. Medications: Medication Review Details: Generic Name Dose Route Start Last Admin Trade Name Freq PRN Reason Stop Dose Admin Allopurinol 300 mg 01/12/22 09:00 01/12/22 08:17 Allopurinol 300 Mg Tablet PO 300 mg DAILY PAPA Administration Aspirin 81 mg 01/12/22 09:00 01/12/22 08:17 Aspirin 81 Mg Ec Tablet PO 81 mg DAILY PAAP Administration Digoxin 250 mcg 01/11/22 19:15 01/12/22 06:19 Digoxin 250 Mcg/ Ml Inj 2 Ml IVP 250 mcg Q6H PAPA Administration Diphenhydramine HC l 50 mg 01/11/22 23:40 01/12/22 00:09 Diphenhydramine 50 Mg Capsule PO 50 mg BEDTIME PRN Administration INSOMNIA Enoxaparin Sodium 90 mg 01/11/22 13:00 01/12/22 00:10 Enoxaparin 100 M g/Ml Syringe 1 mg/kg (90 mg) 90 mg SUBCUT Administration Q12H PAPA Famotidine 20 mg 01/11/22 23:44 01/12/22 08:17 Famotidine 20 Mg Tablet PO 20 mg BID PAPA Administration Furosemide 40 mg 01/12/22 07:00 01/12/22 06:19 Furosemide 10 Mg /Ml Sdv 4ml IVP 40 mg Q24H PAPA Administration Metoprolol Tartrat e 5 mg 01/11/22 12:21 01/11/22 18:01 Metoprolol Tartr ate 1 Mg/1 Ml Sdv 5 Ml IVP 5 mg Q4H PRN Administration ALLERGIES Spironolactone 25 mg 01/12/22 09:00 01/12/22 08:17 Spironolactone 2 5 Mg Tablet PO 25 mg DAILY PAPA Administration Tamsulosin HCl 0.4 mg 01/12/22 09:00 01/12/22 08:17 Tamsulosin 0.4 M g Capsule PO 0.4 mg DAILY PAPA Administration Vitals/I&O/Wt Last Vital Signs Temp 98.3 F 01/12/22 07:22 Pulse 94 01/12/22 07:22 Resp 24 H 01/12/22 07:22 BP 109/65 01/12/22 07:22 Pulse Ox 97 01/12/22 07:22 01/11/22 01/12/22 01/12/22 22:59 06:59 14:59 Intake Total 100 / 100 520 / 620 Output Total 1225 / 1525 650 / 2175 600 / 600 Balance -1125 / -1425 -130 / -1555 -600 / -600 Weight last 48 hrs Weight 85.956 kg Weight 86.183 kg Physical Exam Const: COMMON NORMALS: patient oriented x3 HENMT: COMMON NORMALS: normocephalic, atraumatic and external ears normal HEAD & SCALP: normocephalic and atraumatic EXTERNAL EAR: Yes external ears normal Eye: COMMON NORMALS: no scleral icterus GENERAL EYE: appearance normal, both eyes and all related structures Chest: CHEST: Yes Symmetrical chest wall rise Resp: COMMON NORMALS: normal respiratory effort, No retractions, No use of accessory muscles and clear to auscultation bilaterally EFFORT & INSPECTION: Yes symmetric chest movement AUSCULTATION: clear to auscultation bilaterally Cardio: COMMON NORMALS: regular rate, regular rhythm, S1 normal heart sound present, S2 normal heart sound present and Peripheral pulses 2+ throughout RATE: regular rate RHYTHM: regular rhythm HEART SOUNDS: S1 normal heart sound present and S2 normal heart sound present PERIPHERAL PULSES: Peripheral pulses 2+ throughout OTHER: Irregularly irregular rhythm, S1-S2 with variable intensity, PSM in mitral area GI: COMMON NORMALS: Normal to inspection, nondistended, normoactive bowel sounds present, Soft to palpation, non-tender, No hepatosplenomegaly present and no masses AUSCULTATION: Yes normoactive bowel sounds PALPATION: Yes Soft to palpation and Yes No hepatosplenomegaly present RECTAL EXAM: Yes deferred Extremity: COMMON NORMALS: no clubbing, cyanosis or edema and no pedal edema Neuro: COMMON NORMALS: patient oriented x3 Data : 01/12/22 02:45 01/12/22 02:45 A&P Assessment and plan (1) Atrial fibrillation: Status: Acute (2) NSTEMI (non-ST elevated myocardial infarction): Status: Acute (3) HFrEF (heart failure with reduced ejection fraction): Status: Acute (4) HTN (hypertension): Status: Acute (5) Gout: Status: Acute Plan 71 year old male with past medical history of hypertension, Covid 19 pneumonia, diabetes came in with worsening shortness of breath and fatigue. Assessment # Newly diagnosed cardiomyopathy with currently decompensated HFrEF : Intake output charting Daily weight K>4,MG >2 Telemetry monitoring Continue Lasix 40 IV daily Appreciate cardiology input Cardiac cath in am #Newly diagnosed atrial fibrillation currently with RVR TSH: 2.12 metoprolol 50 mg p.o. twice daily was discontinued as the blood pressure was soft Patient has been started on digoxin Will monitor dig level Continue metoprolol 5 mg IV Q4H as needed for heart rate greater than 110 Lovenox for therapeutic anticoagulation #NSTEMI type II: Likely secondary to A. fib with RVR and decompensated heart failure Continue aspirin #History of hypertension: Lisinopril and HCTZ on hold On Spironlactone #Recent STEMI: #History of diabetes: A1c:5.9 Monitor fasting blood glucose SSI FSG #DVT Prophylaxis: On Lovenox #CODE STATUS: Full code Attestations Medical Necessity Statement*: Patient is to be in hospital for management of heart failure, elevated troponin, A. fib Time Spent in Patient Care: Greater than 35 minutes (>than 50% of time spent in counselling and/or direct pt care on unit) . Coding Level of Care Code Acute Optometric Aide for Valarie Fwd Exam Comprehensive Diagnoses Atrial fibrillation I48.91 NSTEMI (non-ST elevated myocardial infarction) I21.4 HFrEF (heart failure with reduced ejection fraction) I50.20 HTN (hypertension) I10 Gout M10.9
[2022-01-12] MEDS: spironolactone 25 mg Tablet PO (08:17)
[2022-01-12] MEDS: aspirin 81 mg EC Tablet PO (08:17)
[2022-01-12] MEDS: magnesium sulfate premix 2 GM/50 ML PIGGYBACK IV (08:17)
[2022-01-12] MEDS: tamsulosin 0.4 mg Capsule PO (08:17)
[2022-01-12] MEDS: allopurinol 300 mg Tablet PO (08:17)
--- NOTE | 2022-01-12 11:35 | USCV_ITS ---
Rex Henry Age: 71 Gender: M : 1950 Exam Date: 01/12/2022 12:58 Ordering Phys: Zackary Ellington MD Technologist: Mehrdad Riggins Exam Location: [facility] Indication: Aortic stenosis BP: 103 / 56 HR: 111 Rhythm: Sinus Technical Quality: Adequate MEASUREMENTS (Male / Female) Normal Values 2D ECHO LVOT Diameter 2.1 cm LA Diameter 3.7 cm DOPPLER AV Peak Velocity 416.2 cm/s LVOT Peak Velocity 59.0 cm/s AV Area Cont Eq vti 0.6 cm squared AV Area Cont Eq pk 0.5 cm squared FINDINGS Left Ventricle Right Ventricle Right Atrium Left Atrium Mitral Valve Aortic Valve Tricuspid Valve Pulmonic Valve Pericardium Aorta CONCLUSIONS This is a limited echocardiogram performed to assess aortic stenosis Aortic valve is thickened and calcified. Limited opening. By continuity equation, patient has aortic valve area of 0.63 cm squared with a mean gradient of 25 mmHg. This is consistent with low flow-low gradient severe aortic stenosis Comparison with prior echocardiogram is not possible as aortic doppler signals were suboptimal on prior echocardiogram Luis Miguel Egan MD (Electronically Signed) Final Date: 13 January 2022 09:47 S
--- NOTE | 2022-01-12 13:52 | PM.PN ---
Subjective Subjective: Patient is doing well. No complaints of chest pain. Shortness of breath has improved significantly. Lower extremity edema is also better. Vitals/I&O/Wt Last Vital Signs Temp 98.3 F 01/12/22 07:22 Pulse 83 01/12/22 11:37 Resp 17 01/12/22 11:37 BP 119/61 01/12/22 11:37 Pulse Ox 97 01/12/22 11:37 01/11/22 01/12/22 01/12/22 22:59 06:59 14:59 Intake Total 100 / 100 520 / 620 300 / 300 Output Total 1225 / 1525 650 / 2175 925 / 925 Balance -1125 / -1425 -130 / -1555 -625 / -625 Weight last 48 hrs Weight 188 lb 8 oz Weight 189 lb 8 oz Weight 190 lb Physical Exam Narrative: GENERAL: Patient is alert, awake and oriented x3. [] NECK: No jugular vein distension. [] HEENT: No cyanosis. No icterus. No pallor. [] HEART: Irregularly irregular, has significant grade 4/6 systolic murmur LUNGS: Mild basal crackles bilaterally ABDOMEN: Soft, nontender and nondistended. Positive bowel sounds. No guarding, rebound or tenderness. [] CENTRAL NERVOUS SYSTEM: Grossly nonfocal. [] EXTREMITIES: Lower extremities with 1+ edema bilaterally. Pulses palpable in the lower extremities, both dorsalis pedis and posterior tibial. [] Data : 01/12/22 02:45 01/12/22 02:45 A&P Assessment and plan (1) New onset atrial fibrillation: Status: Acute (2) HFrEF (heart failure with reduced ejection fraction): Status: Acute (3) Aortic valve stenosis: Status: Acute (4) HTN (hypertension): Status: Acute Plan Patient has presented with atrial fibrillation with RVR and was in congestive heart failure exacerbation. Recent echocardiogram showed EF of 30 to 35% with global hypokinesis. He has significant murmur and clinically appears to have aortic stenosis however gradients on echocardiogram were not significant. We will repeat limited echo to focus on aortic valve. Given his new onset heart failure, we will proceed with coronary angiogram to rule out coronary artery disease. Plan for procedure for tomorrow. Continue digoxin. Heart rates are better controlled today. As blood pressure tolerates, we will start low-dose beta-blockers. Strict I&O's. Low-sodium diet. Thank you for involving us with care of this patient. We will continue to follow. Please call with questions. Attestations Medical Necessity Statement*: Care expected to cross 2 midnights. Coding Level of Care Code Acute Hospice Home Health Aide for Valarie Fwd Diagnoses New onset atrial fibrillation I48.91 HFrEF (heart failure with reduced ejection fraction) I50.20 Aortic valve stenosis I35.0 HTN (hypertension) I10
[2022-01-12] MEDS: ropinirole 1 mg Tablet PO (20:31)
[2022-01-13] VITALS (28 sets, daily range): BP systolic 94–140; BP diastolic 58–83; PULSE 84–132; RESP 10–26; TEMP 36.4–36.6; O2SAT 92–100; BMI 24.2
[2022-01-13] MEDS: calcium carbonate 500 mg Chew Tablet 1000 MG PO (00:47)
[2022-01-13] MEDS: enoxaparin 100 mg/mL Syringe 90 MG SUBCUT ×2 (00:48→13:35)
[2022-01-13] MEDS: digoxin 250 mcg/ml INJ 2 mL IVP ×2 (00:49→06:26)
[2022-01-13] MEDS: metoprolol tartrate 1 mg/1 mL SDV 5 mL 5 MG IVP ×2 (01:19→18:59)
[2022-01-13] MEDS: alum-mag-hydroxide-sime 30 mL UDC PO (01:51)
[2022-01-13 03:37] LABS: Basophils # 0.1 10^3/uL (0.0-0.1); Basophils % 0.5 %; Eosinophils # 0.1 10^3/uL (0.0-0.8); Eosinophils % 1.1 %; Hemoglobin 13.8 g/dL (11.7-16.6); Lymphocytes # 1.2 10^3/uL (0.8-4.8); Lymphocytes % 12.4 %; Mean Corpuscular HGB Conc 32.9 g/dL (30.0-36.0); Mean Corpuscular Hemoglobin 30.8 pg (28.0-34.0); Mean Corpuscular Volume 93.8 fl (80-94); Mean Platelet Volume 11.5 fL (7.4-10.4); Monocytes # 0.9 10^3/uL (0.2-0.9); Monocytes % 8.6 %; Neutrophils # 7.71 10^3/uL (1.8-7.7); Nucleated Red Blood Cells % 0 %; Platelet Count 151 10^3/cmm (130-400); Red Blood Count 4.48 10^6/uL (4.1-5.3); Red Cell Distribution Width 12.5 % (12.1-15.1)
[2022-01-13 03:56] LABS: Anion Gap 15.4 (5-19); Blood Urea Nitrogen 23 mg/dL (8-23); Calcium 8.7 mg/dL (8.5-10.5); Carbon Dioxide 29 mmol/L (22-29); Chloride 93 mmol/L (98-107); Glucose 199 mg/dL (65-115); Osmolality Calculated 285 mOsm/kg (285-295); Potassium 4.4 mmol/L (3.5-5.1); Sodium 133 mmol/L (136-145)
[2022-01-13] MEDS: HYDROcodone-acetaminophen 5-325 mg Tablet 1 TAB PO (05:01)
--- NOTE | 2022-01-13 05:51 | SUR.OPER ---
pt rested intermittently throughout shift. pt remained in afib throughout the night. VS otherwise stable. pt used urinal at bedside. adequate UOP. Mylanta and Tums given for indigestion per order from Dr. Green. [place] 5 given as a one time order from Dr. Green for pain. pt NPO at midnight. hourly rounding done. all needs met.
--- NOTE | 2022-01-13 06:06 | XACV_ITS ---
Exam Room: 2 Ht: 188 cm Wt: 85 kg BSA: 2.11 m2 Gender: Male : 1950 Exam Priority: Routine Procedure(s): Procedure Description: Diagnostic procedure Procedure Description: Right Heart Catheterization Procedure Description: O2 saturation Procedure Description: Coronary Angiography Diagnostic Cath Status: Urgent Diagnostic Findings * Proximal Right Coronary Artery: chronic total occlusion, LAURA: 0 flow. * INDICATION: Patient has presented with acute congestive heart failure symptoms. Patient found to have low flow low gradient Severe aortic stenosis. Aortic valve could not be crossed. 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 * Left Main: obstructive 70% stenosis, LAURA: 3 flow. * Mid Left Anterior Descending: obstructive 70% stenosis, LAURA: 3 flow. * Proximal Circumflex: significant 80% stenosis, LAURA: 3 flow. * First Obtuse Marginal Branch Segment: severe 90% stenosis, LAURA: 3 flow. * Coronary angiography shows right dominance. Conclusions 1. Severe multivessel coronary artery disease including left main artery, mid LAD,LCx/ OM 1. RCA is MEDICAL RESEARCH TECH proximally with left to right collaterals. 2. Increased right and left sided cardiac pressures. 3. Severe low flow low gradient Aortic stenosis noted on the echocardiogram. Aortic valve could not be crossed during the cath. Recommendations * Urgent CT surgery consultation for combined CABG and aortic valve replacement. * Continue aspirin. Avoid hypotension. Interventional RX Recommendation: CABG Diagnostic RX Recommendation: CABG Anticoagulation: Heparin Pressures Phase:Rest RV : 58 / 0 / 12 @ 7:33:00 AM PA : 56 / 24 ( 32 ) @ 7:31:00 AM RA : a wave = 13 v wave = 14 mean = 12 @ 7:34:00 AM PCW : a wave = 26 v wave = 29 mean = 24 @ 7:31:00 AM O2 Content Phase:Rest PA : O2 Content O2: 58.8 @ 7:31:00 AM Saturations Phase:Rest AO : 91 @ 7:31:00 AM PA : 59 @ 7:31:00 AM Cardiac Output Phase:Rest Elena : 4 @ 8:06:17 AM Elena Cardiac Index: 2 @ 8:06:17 AM Flow Phase:Rest Qp : 4 @ 8:06:17 AM Qs : 4 @ 8:06:17 AM Clinical Evaluation EBL: 5mL-10mL Procedural Details Procedure Consent Obtained. Pre-Procedure Time Out. Identified patient by full name and date of as verbalized by the patient/guarantor. Does the consent match the physician's order: Yes. Accurate & Complete Informed Consent: Yes. Inpatient/Outpatient History & Physical on Chart: Yes. If H&P is completed, is and addenduem needed: No. Visualize and Verify Site with Patient/Guarantor: N/A. Relevant Radiology Images available: Yes. The risks, benefits, and alternatives of sedation and/or procedure were discussed by physician. The patient agrees to continue. Procedure started. [facility] Clinical Fraility Score: 4: Vulnerable. Head Custodian Indications: LV Dysfunction. Chest Pain Symptom Assessment: Atypical Angina. Cardiovascular Instability: No. Correct patient, site and procedure confirmed by cath team. PERRLA. Strong, equal hand presser all around bilaterally. Lungs clear x 5 lobes. IV Site on Arrival: 20 gauge in the left anticubital. A 20 gauge IV was started in the right anticubital using aseptic technique by Julianna Lyons RN for RHC. IV Fluids: 0.9% NaCl at KVO. 0 mL infused prior to rags laborer. Pre Procedural Pulses: bilateral dorsalis pedis was 3+. Pre Procedural Pulses: bilateral posterior tibial was 3+. Pre Procedural Pulses: bilateral radial was 3+. right groin was prepped with chloroprep then draped in the usual sterile fashion. right radial was prepped with chloroprep then draped in the usual sterile fashion. Physician notified. Baseline sample Acquired. HR: 88 BPM. Patient's family unavailable. Equipment: 6F - Radial. Cardiac Cath Pack. ACIST Manifold Kit Model BT 2000. Heparinized Saline (2 units/mL), 1000 mL bag. Physician arrived. Physician scrubbed in. Immediate Pre-Procedure Time Out. Correct Patient: Yes; Correct Procedure: Yes; Correct Site: Yes; Correct Patient Position: Yes; Correct Supplies: Yes; Dried Flammable Prep: Yes; Blood Products Available: N/A;. Lidocaine 1% infiltrated to the right brachial. [place]za catheter inserted. Oximetry samples were obtained. Normal venous range: 60-85%. Normal arterial range: 95-100%. Pressure measurements obtained. [place]-Al[place]za out. Lidocaine 1% infiltrated to the right radial. Arterial access obtained. A 5 omani TIG catheter in over wire. Oxygen started at 2liters/min via nasal canula. Multiple views taken of left coronary artery. Catheter redirected to the RCA. Unable to cannulate RCA. Catheter removed over the standard wire. A 5 omani JR4 catheter in over wire. Multiple views taken of right coronary artery. 260cm 0.035 stiff angled glidwire in through the JR4 catheter to cross the valve. Catheter removed over the glide wire. A 5 omani AR1 catheter in over the glidewire. Catheter removed over the glide wire. Dr. Egan scrubbed out. TR band placed. Hemostasis obtained. A Manual Compression was successful obtaining hemostatsis at the Right Brachial artery insertion site. A TR Band was successful obtaining hemostatsis at the Radial artery insertion site. Post Procedure: Pulses reassessed and unchanged. PERRLA. Strong, equal hand presser all around bilaterally. No VTE prophylaxis required. Medication's Wasted: Lidocaine 1% = 18 mL. Medication's Wasted: Nitro = 49.9 mg. Medication's Wasted: Heparin = 1000 units. Total IV fluids: 50 mL. Post-op diagnosis: Mult-vessel CAD. Complications: none. Estimated blood loss: 5mL-10mL. Responsiveness - Normal response to verbal stimuli; alert and oriented, PERRLA. Airway - Unaffected, no intervention required; spontaneous ventilation. Circulation: W/N/L, pulses unchanged. Nausea/Vomiting: No. Procedure completed. Patient transferred by wheelchair to 1st floor. Vital chart was stopped. Tabitha Dominguez RN, SENIOR PLANNER was relieved by RT Neftali(R) as monitoring person. Access Site Site: Right Brachial artery Sheath Size: 6 Fr Hemostasis Method: Manual Compression Hemostasis Success: Successful Site: Radial artery Sheath Size: 6 Fr Hemostasis Method: TR Band Hemostasis Success: Successful Procedure Medications Start: 7:24 AM Stop: 7:24 AM Medication: Versed Amount: 1 mg Route: I.V. Start: 7:24 AM Stop: 7:24 AM Medication: Fentanyl Amount: 50 mcg Route: I.V. Start: 7:37 AM Stop: 7:37 AM Medication: Nitrogylcerin Amount: 100 mcg Route: I.A. I, the attending physician, have reviewed and verified all procedure medications. Yes, all medications given per verbal order History/Risk Factors Hypertension: Yes Dyslipidemia: No Peripheral Arterial Disease (PAD): No Myocardial Infarction (AR): No Obesity: No Renal Disease: No Tobacco Use: Never Prior Interventions PCI: No CABG: No Valve Surgery: No Report Signatures Finalized by Luis Miguel Egan MD on 01/19/2022 11:10 AM
--- NOTE | 2022-01-13 07:22 | W.PM.OPSUD ---
Surgery/Procedure H&P Update DATE OF PROCEDURE: January 13, 2022 DATE H&P PERFORMED: 01/11/22 H&P UPDATE INFORMATION: I have reviewed H&P completed within last 30 days, I have examined patient prior to procedure and No changes to prior documentation PREOP DIAGNOSIS: New onset heart failure/aortic stenosis PRIMARY INDICATION FOR PROCEDURE: New onset heart failure/aortic stenosis PLANNED PROCEDURE: Operation Date: 01/13/22 07:00 Proposed Procedures p Cardiac Catheterization(Bilateral) - Luis Miguel Egan M.D Possible percutaneous coronary intervention PATIENT REASSESSED PRIOR TO SEDATION, WITH NO CHANGE NOTED: Yes PHYSICAL EXAM: alert, oriented x 3 and clear to auscultation bilaterally OTHER PERTINENT EXAM FINDINGS: Irreularly irregular heart rhythm/grade 4/6 systolic murmur AIRWAY EVAL/ANESTHESIA PLAN: ASA III, Monitored Anesthesia, Local Anesthesia, Risks, benefits & alternatives of sedation and/or procedure discussed and Patient agrees to continue as planned
--- NOTE | 2022-01-13 08:43 | PM.MISC ---
Miscellaneous Note Purpose of Documentation: Brief procedure note Note: Left main artery: Severe distal 60% stenosis, calcified vessel LAD: Has moderate to severe mid vessel 60-70% stenosis LCx: Proximal vessel has 80% stenosis. OM 1 has ostial 70% stenosis RCA: Ostially occluded with collaterals from left system Aortic valve: Could not be crossed. On limited echo yesterday, patient has severe aortic stenosis with LYNSEY<1cm2
[2022-01-13] MEDS: sodium chloride 0.9% 1,000 ML 50 ML IV (09:00)
--- NOTE | 2022-01-13 09:01 | PC.CHAP ---
Pastoral Care Encounter/Spiritual Assessment Type of Contact [] Declined yarn weigher visit [] Patient/Family/Request visit [] Outpatient visit [] Follow-up visit [] Physician referral [] Code/Alert [x] Routine visit [] Staff referral [] Actively dying [] Patient sleeping [] Family support [] [] Out of room [] Palliative care [] [] Receiving care in room [] Pre-surgical visit [] Trauma [] Long length of stay [] ICU visit [] Other: Relational/Emotional Strength [x] Patient feels connected with others/family/visitors/staff [] Distress [] Loneliness/isolation [] Abandonment Spirituality of Patient [x] Person of Shannon [] Attends Mormon of their [place] [x] Believes in Prayer [] Reads Bible or Hoahaoism materials [] There are Spiritual issues to be addressed Ruffling Hemmer [employer] Interventions [] Prayer [x] Active listening [x] Non-anxious presence [x] Spiritual/emotional support [] Crisis/trauma care [] Spiritual counseling [] Bereavement support [] Provided bereavement packet [] Provided Bible/devotional materials [] Provided toy/stuffed animal, coloring book to patient or family member [] Provided Communion [] Anointing/[place] [] Salvation [] Completed spiritual assessment [] Other: Impact on Illness or Injury [] Angry [] Fearful [] Anxious [] Often cries [] Exhaustion [] Unable to work [] Unable to attend mormonism [] Unable to walk/stand [] Unable to read [] Unable to drive [] Unable to eat/drink [] Unable to sleep [] Unable to be with family [] Patient intubated [] Other: Summary Pt advised Ruffling Hemmer Automatic he was just told this morning he is facing open heart surgery needing three stints and a valve replacement. It is uncertain where he will have the procedures done since his doctor is not wanting to to the valve and may recommend he go elsewhere. Pt will learn more later today. asked about family and he said his in August from [employer]. 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 As was speaking a staff member came into the room briefly. At this point, Pt did not appear to want to continue talking with Ruffling Hemmer [employer]. He did state he may want to speak with a yarn weigher later. He declined prayer. Time spent with patient 10m
[2022-01-13] MEDS: metoprolol tartrate 25 mg Tablet 12.5 MG PO (09:55)
[2022-01-13] MEDS: aspirin 81 mg EC Tablet PO (09:55)
[2022-01-13] MEDS: allopurinol 300 mg Tablet PO (09:55)
[2022-01-13] MEDS: famotidine 20 mg Tablet PO ×2 (09:55→17:09)
[2022-01-13] MEDS: digoxin 250 mcg Tablet PO (09:55)
[2022-01-13] MEDS: tamsulosin 0.4 mg Capsule PO (09:56)
[2022-01-13] MEDS: spironolactone 25 mg Tablet PO (09:56)
[2022-01-13] MEDS: magnesium hydroxide 30 mL UDC PO (10:13)
--- NOTE | 2022-01-13 12:21 | PM.PN ---
Subjective Subjective: Patient was seen and examined this morning, states he feels better, currently in sinus. His other vitals and labs have been reviewed. Medications: Medication Review Details: Generic Name Dose Route Start Last Admin Trade Name Renée PRN Reason Stop Dose Admin Allopurinol 300 mg 01/12/22 09:00 01/12/22 08:17 Allopurinol 300 Mg Tablet PO 300 mg DAILY PAPA Administration Aspirin 81 mg 01/12/22 09:00 01/12/22 08:17 Aspirin 81 Mg Ec Tablet PO 81 mg DAILY PAPA Administration Digoxin 250 mcg 01/11/22 19:15 01/12/22 06:19 Digoxin 250 Mcg/ Ml Inj 2 Ml IVP 250 mcg Q6H PAPA Administration Diphenhydramine HC l 50 mg 01/11/22 23:40 01/12/22 00:09 Diphenhydramine 50 Mg Capsule PO 50 mg BEDTIME PRN Administration INSOMNIA Enoxaparin Sodium 90 mg 01/11/22 13:00 01/12/22 00:10 Enoxaparin 100 M g/Ml Syringe 1 mg/kg (90 mg) 90 mg SUBCUT Administration Q12H PAPA Famotidine 20 mg 01/11/22 23:44 01/12/22 08:17 Famotidine 20 Mg Tablet PO 20 mg BID PAPA Administration Furosemide 40 mg 01/12/22 07:00 01/12/22 06:19 Furosemide 10 Mg /Ml Sdv 4ml IVP 40 mg Q24H PAPA Administration Metoprolol Tartrat e 5 mg 01/11/22 12:21 01/11/22 18:01 Metoprolol Tartr ate 1 Mg/1 Ml Sdv 5 Ml IVP 5 mg Q4H PRN Administration ALLERGIES Spironolactone 25 mg 01/12/22 09:00 01/12/22 08:17 Spironolactone 2 5 Mg Tablet PO 25 mg DAILY PAPA Administration Tamsulosin HCl 0.4 mg 01/12/22 09:00 01/12/22 08:17 Tamsulosin 0.4 M g Capsule PO 0.4 mg DAILY PAPA Administration Vitals/I&O/Wt Last Vital Signs Temp 97.6 F 01/13/22 11:06 Pulse 90 01/13/22 11:06 Resp 19 H 01/13/22 11:06 BP 126/71 01/13/22 11:06 Pulse Ox 96 01/13/22 11:06 01/12/22 01/13/22 01/13/22 22:59 06:59 14:59 Intake Total 500 / 800 0 / 800 360 / 360 Output Total 350 / 1975 Balance 500 / -825 -350 / -1175 360 / 360 Weight last 48 hrs Weight 85.457 kg Weight 85.502 kg Physical Exam Const: COMMON NORMALS: patient oriented x3 HENMT: COMMON NORMALS: normocephalic, atraumatic and external ears normal HEAD & SCALP: normocephalic and atraumatic EXTERNAL EAR: Yes external ears normal Eye: COMMON NORMALS: no scleral icterus GENERAL EYE: appearance normal, both eyes and all related structures Chest: CHEST: Yes Symmetrical chest wall rise Resp: COMMON NORMALS: normal respiratory effort, No retractions, No use of accessory muscles and clear to auscultation bilaterally EFFORT & INSPECTION: Yes symmetric chest movement AUSCULTATION: clear to auscultation bilaterally Cardio: COMMON NORMALS: regular rate, regular rhythm, S1 normal heart sound present, S2 normal heart sound present and Peripheral pulses 2+ throughout RATE: regular rate RHYTHM: regular rhythm HEART SOUNDS: S1 normal heart sound present and S2 normal heart sound present PERIPHERAL PULSES: Peripheral pulses 2+ throughout OTHER: Irregularly irregular rhythm, S1-S2 with variable intensity, ESM in Aortic area GI: COMMON NORMALS: Normal to inspection, nondistended, normoactive bowel sounds present, Soft to palpation, non-tender, No hepatosplenomegaly present and no masses AUSCULTATION: Yes normoactive bowel sounds PALPATION: Yes Soft to palpation and Yes No hepatosplenomegaly present RECTAL EXAM: Yes deferred Extremity: COMMON NORMALS: no clubbing, cyanosis or edema and no pedal edema Neuro: COMMON NORMALS: patient oriented x3 Data : 01/13/22 03:27 01/13/22 03:27 A&P Assessment and plan (1) Atrial fibrillation: Status: Acute (2) NSTEMI (non-ST elevated myocardial infarction): Status: Acute (3) HFrEF (heart failure with reduced ejection fraction): Status: Acute (4) HTN (hypertension): Status: Acute (5) Gout: Status: Acute (6) Aortic valve stenosis: Status: Acute Plan 71 year old male with past medical history of hypertension, Covid 19 pneumonia, diabetes came in with worsening shortness of breath and fatigue. Assessment # Newly diagnosed cardiomyopathy with currently decompensated HFrEF : Intake output charting Daily weight K>4,MG >2 Telemetry monitoring Continue Lasix 40 IV daily. S/p coronary angiogram: LM : Severe distal 60% stenosis, LAD: moderate to severe mid vessel 60-70% stenosis, LCx: Proximal vessel has 80% stenosis. OM 1 has ostial 70% stenosis, RCA: Ostially occluded with collaterals from left system. Appreciate cardiology input Cardiac thoracic surgery has been consulted: For Possibilty of CABG and AVR #Newly diagnosed atrial fibrillation currently with RVR TSH: 2.12 Initially metoprolol 50 mg p.o. twice daily was discontinued as the blood pressure was soft on digoxin 250 mcg po daily M.T 12.5 MG PO BID has been restarted. Will monitor dig level Continue metoprolol 5 mg IV Q4H as needed for heart rate greater than 110 Lovenox for therapeutic anticoagulation #CAD : S/p CAG : LM : Severe distal 60% stenosis, LAD: moderate to severe mid vessel 60-70% stenosis, LCx: Proximal vessel has 80% stenosis. OM 1 has ostial 70% stenosis, RCA: Ostially occluded with collaterals from left system. # Aortic stenosis: 2D echo : Aortic valve area of 0.63 cm squared with a mean gradient of 25 mmHg. In the setting of low EF, findings are consistent with severe aortic stenosis. #NSTEMI type II: Likely secondary to A. fib with RVR and decompensated heart failure Continue aspirin #History of hypertension: Lisinopril and HCTZ on hold On Spironlactone #Recent STEMI: #History of diabetes: A1c:5.9 Monitor fasting blood glucose SSI FSG #DVT Prophylaxis: On Lovenox #CODE STATUS: Full code Attestations Medical Necessity Statement*: Patient needs to be in hospital for management of, heart failure , coronary artery disease. Time Spent in Patient Care: Greater than 35 minutes (>than 50% of time spent in counselling and/or direct pt care on unit). Coding Level of Care Code Acute Pediatric Physiatrist for g Fwd Diagnoses Atrial fibrillation I48.91 NSTEMI (non-ST elevated myocardial infarction) I21.4 HFrEF (heart failure with reduced ejection fraction) I50.20 HTN (hypertension) I10 Gout M10.9 Aortic valve stenosis I35.0
--- NOTE | 2022-01-13 12:36 | P.CONIM_ITS ---
Providers/Reason For Consult Consulting Physician/Specialty*: Dr. Gardner/cardiothoracic surgery Reason for Consult*: Coronary artery disease/aortic valve stenosis Requesting Physician: Dr. Egan Attending Physician: Zackary Ellington MD Primary Care Provider: Aissatou Acuna APN History of Present Illness History of Present Illness Rex Henry is a 71 year old male who was just completed a left heart catheterization earlier today by Dr. Egan as part of an evaluation for suspected coronary artery disease and aortic valve stenosis with a prior transthoracic echocardiogram describing aortic valve stenosis with a valve area of 0.63 cm?. Mr. Henry left heart catheterization revealed a 60% left main stenosis, 70 to 80% mid LAD stenosis, 80% proximal circumflex disease, and total occlusion of the RCA with left to right collateralization. Ejection fraction is calculated between 30 and 40%. He gives a recent history over the past 2 to 3 months of progressive dyspnea with exertion. He denies chest pain. No chest pain at rest. No prior cardiac procedures. No use of tobacco. No alcohol use. He did have COVID-19 late last year as did his . His succumbed to the disease. He did not require hospitalization. He is vaccinated and has a booster. He did not receive any antibody infusion. He does not complain of dyspnea at rest, though only with exertion. This occurs at between 1 and 2 blocks. He does sleep with his head elevated, related to nocturnal reflux. He does have a history of hypertension, which has been somewhat difficult to control. I have personally reviewed his various radiographic studies and have conferred with Dr. Egan by phone. Review of Systems Const: Reports: fatigue; Denies: fever(s), chills, change in appetite, change in weight or night sweats Eyes: Denies: change in vision or blurry vision ENMT: Denies: odynophagia or hoarseness Card: Denies: chest pain, palpitations, irregular heart rhythm or edema Resp: Reports: dyspnea (On exertion); Denies: productive cough GI: Reports: other (Reflux mostly at night); Denies: abdominal pain, nausea, vomiting, hematemesis, dysphagia, heartburn or change in bowel habits : Denies: difficulty urinating, dysuria, urinary frequency, urinary urgency or urinary hesitancy Musc: Denies: extremity pain or extremity swelling Skin/Breast: Denies: rash Neuro: Denies: headache(s), numbness in extremities, weakness in extremities or sensory changes Psych: Denies: anxiety, depression or change in appetite Endo: Denies: polyuria, polydipsia or cold intolerance Eduardo/Lymph: Denies: easy bruising, easy bleeding, petechiae or enlarged lymph nodes Medications/Allergies Home Medications Medication Instructions Recorded Confirmed Last Taken Type allopurinol 300 mg tablet 300 mg PO DAILY PRN 10/08/21 01/11/22 Unknown History aspirin 81 mg tablet,delayed 81 mg PO DAILY 10/08/21 01/11/22 01/10/22 History release (Adult Low Dose Aspirin) hydrochlorothiazide 25 mg tablet 25 mg PO DAILY 10/08/21 01/11/22 01/10/22 His tory lisinopril 20 mg tablet 20 mg PO BID 10/08/21 01/11/22 01/11/22 History metoprolol succinate 50 mg 100 mg PO BID 10/08/21 01/11/22 01/11/22 History tablet,extended release 24 hr naproxen sodium 220 mg tablet 220 mg PO BID PRN 10/08/21 01/11/22 Unknown History (Aleve) tamsulosin 0.4 mg capsule (Flomax) 0.4 mg PO DAILY 10/08/21 01/11/22 01/10/22 History ropinirole 1 mg tablet 1 mg PO BEDTIME PRN 01/11/22 01/11/22 Unknown History Allergies Allergy/AdvReac Type Severity Reaction Status Date / Time No Known Allergies Allergy Verified 10/08/21 13:46 Current Medications Generic Name Dose Route Start Last Admin Trade Name Renée PRN Reason Stop Dose Admin Allopurinol 300 mg 01/12/22 09:00 01/13/22 09:55 Allopurinol 300 Mg Tablet PO 300 mg DAILY PAPA Administration Aspirin 81 mg 01/12/22 09:00 01/13/22 09:55 Aspirin 81 Mg Ec Tablet PO 81 mg DAILY PAPA Administration Digoxin 250 mcg 01/13/22 09:00 01/13/22 09:55 Digoxin 250 Mcg Tablet PO 250 mcg DAILY PAPA Administration Diphenhydramine HCl 50 mg 01/11/22 23:40 01/12/22 20:31 Diphenhydramine 50 Mg Capsule PO 50 mg BEDTIME PRN Administration INSOMNIA Enoxaparin Sodium 90 mg 01/11/22 13:00 01/13/22 00:48 Enoxaparin 100 Mg/Ml Syringe 1 mg/kg (90 mg) 90 mg SUBCUT Administration Q12H PAPA Famotidine 20 mg 01/11/22 23:44 01/13/22 09:55 Famotidine 20 Mg Tablet PO 20 mg BID PAPA Administration Furosemide 40 mg 01/12/22 07:00 01/12/22 06:19 Furosemide 10 Mg/Ml Sdv 4ml IVP 40 mg Q24H PAPA Administration Magnesium Hydroxide 30 ml 01/13/22 08:35 01/13/22 10:13 Magnesium Hydroxide 30 Ml Udc PO 30 ml DAILY PRN Administration CONSTIPATION Metoprolol Tartrate 5 mg 01/11/22 12:21 01/13/22 01:19 Metoprolol Tartrate 1 Mg/1 Ml Sdv 5 Ml IVP 5 mg Q4H PRN Administration ALLERGIES Metoprolol Tartrate 12.5 mg 01/13/22 09:00 01/13/22 09:55 Metoprolol Tartrate 25 Mg Tablet PO 12.5 mg BID@0900,2100 PAPA Administration Ropinirole HCl 1 mg 01/12/22 21:00 01/12/22 20:31 Ropinirole 1 Mg Tablet PO 1 mg BEDTIME PAPA Administration Spironolactone 25 mg 01/12/22 09:00 01/13/22 09:56 Spironolactone 25 Mg Tablet PO 25 mg DAILY PAPA Administration Tamsulosin HCl 0.4 mg 01/12/22 09:00 01/13/22 09:56 Tamsulosin 0.4 Mg Capsule PO 0.4 mg DAILY PAPA Administration PFSH Acute PFSH: Medical History Acute on chronic diastolic (congestive) heart failure Atherosclerotic heart disease Benign essential hypertension with target blood pressure below 140/90 GERD (gastroesophageal reflux disease) Murmur, cardiac Type 2 diabetes mellitus Family History Mother Hypertension Social History Smoking and tobacco status: never smoked Alcohol intake: never Vitals/I&O/Wt Last Vital Signs Temp 97.6 F 01/13/22 11:06 Pulse 94 01/13/22 12:30 Resp 15 01/13/22 12:30 BP 110/68 01/13/22 12:30 Pulse Ox 98 01/13/22 12:30 01/12/22 01/13/22 01/13/22 22:59 06:59 14:59 Intake Total 500 / 800 0 / 800 480 / 480 Output Total 350 / 1975 800 / 800 Balance 500 / -825 -350 / -1175 -320 / -320 Weight last 48 hrs Weight 188 lb 6.4 oz Weight 188 lb 8 oz Physical Exam Const: COMMON NORMALS: no acute distress and patient oriented x3 HENMT: COMMON NORMALS: normocephalic, atraumatic, hearing grossly normal bilaterally, external ears normal and Normal external nose present HEAD & SCALP: normocephalic and atraumatic FACE & SINUS: normal facial exam NOSE: Normal external nose present GENERAL EAR: hearing grossly impaired EXTERNAL EAR: Yes external ears normal Eye: COMMON NORMALS: Equal, round and reactive pupils present, EOMs intact bilaterally, conjunctivae normal and no scleral icterus CONJUNCTIVA: Yes conjunctivae normal PUPIL: Yes Equal, round and reactive pupils present Neck/C-Spine: COMMON NORMALS: supple and No carotid bruits GENERAL: Yes trachea midline Chest: COMMONS NORMALS: normal inspection of the chest and normal palpation of entire chest wall CHEST: Yes Symmetrical chest wall rise Resp: COMMON NORMALS: normal respiratory effort, No use of accessory muscles and clear to auscultation bilaterally EFFORT & INSPECTION: Yes able to speak in complete sentences and Yes symmetric chest movement AUSCULTATION: clear to auscultation bilaterally Cardio: COMMON NORMALS: regular rate, regular rhythm and S1 normal heart sound present PALPATION: normal PMI RATE: regular rate RHYTHM: regular rhythm HEART SOUNDS: S1 normal heart sound present and Murmur heart sound present systolic Location: right sternal border Intensity: III/ Timing: mid BRUITS: no abdominal aortic bruits and no carotid bruits PERIPHERAL PULSES: radial pulses present positive bilateral 2+ Extremity: COMMON NORMALS: normal to inspection, capillary refill normal and no clubbing, cyanosis or edema Neuro: COMMON NORMALS: patient oriented x3, no focal motor deficits and no sensory deficits noted Psych: COMMON NORMALS: mental status grossly normal, Normal thought process present, cooperative and normal affect THOUGHT PROCESS: Normal thought process present Skin: COMMON NORMALS: no rashes or lesions noted GENERAL SKIN EXAM: no rashes or lesions noted Data : 01/13/22 03:27 01/13/22 03:27 A&P Assessment and plan (1) Aortic valve stenosis: Pleasant 71-year-old gentleman with severe aortic valve stenosis and three- vessel coronary artery disease including 60% left main stenosis. I reviewed with him and his family member the findings left heart catheterization, echocardiogram, and the consideration for surgical correction. I utilized our handwritten education materials to review the anatomy, pathology, and re commended procedures. Several questions were answered. While clearly there is an increased risk related to the need for both valve replacement and bypass surgery, I do think he is a reasonable candidate for correction of both problems. Apparently, he and family members have been in prior discussion and he wishes to consider transfer to [facility], for a bigger staff . I did discuss that I felt we had the adequate personnel, experience, and support services for his recommended procedure, though clearly he appears to be more comfortable at a larger facility. I have conferred with my colleague, Dr. Egan by phone as to Marivel Henry decision. We will be available as needed should our services be required. Status: Acute Consult Attestations Medical Necessity Statement: Severe aortic valve stenosis with three-vessel coronary artery disease Coding Level of Care Code New Pt Acute Investment Sales Assistant for Nickg Fwd Patient Type New History Detailed Exam Detailed Medical Decision Making Moderate Complexity Diagnoses Aortic valve stenosis I35.0 Time Spent (min) 40
--- NOTE | 2022-01-13 20:18 | P.EN_ITS ---
Event Note Event Note: Initially rapid response was called which was transitioned to VONNIE TREVINO within a minute When I entered the room patient was getting chest compression As per the nursing staff patient came out of the bathroom and fell on the ground and lost his pulse Chest compressions started, VONNIE TREVINO was called around 19:54 Rhythm check revealed V. fib, he was shocked with 200 J Epi 1 mg was given, Patient was intubated with the help of a kaleidoscope by Dr. Gay Poor IV access, left tibial IO access obtained In total 3 shocks were delivered with multiple dose of epi 300 mg of amiodarone was also given after second round of shock Family was contacted, son who lives 15 minutes away, agreed with stopping resuscitative measures, code was stopped around 20:07(8:07PM) Son is on his way Primary attending and oracle manufacturing consultant notified
--- NOTE | 2022-01-13 20:25 | PC.NURSE ---
LNW 1944. pt noted to be off tele. this nurse went in and found pt down in the bathroom. code blue button pushed. 1953- compressions and shock 1955- epi in 1955- calcium chloride 1956- bicarb in 1957- pulse check. no pulse. compressions resumed. 1999- pulse check. epi in. 22g L forearm. 2001- pulse check. IO. Shock. 2002- 300mg amio in 2003- pulse check. shock. epi in. 2006- pulse check. no pulse. 2006- compressions resumed. 2007- TOD called- Dr. Gay.
[2022-01-13 21:22] LABS: Glucose Point of Care 189 mg/dL (70-110)
--- NOTE | 2022-01-13 23:07 | PC.NURSE ---
pt belongings given to son to take home
--- NOTE | 2022-01-14 03:17 | PC.NURSE ---
MT[facility] declined donation due to pt family refusal. Dolly chosen for home
--- NOTE | 2022-01-14 03:19 | PC.NURSE ---
belongings sent with son
--- NOTE | 2022-01-14 03:59 | ED_ITS ---
HPI - General Adult General: Chief complaint: General Medical Stated complaint: WEAKNESS; DIZZY Time Seen by Provider: 01/11/22 07:58 Source: patient and EMS Mode of arrival: EMS Limitations: no limitations History of Present Illness: . Relieving factors: none Exacerbating factors: other (activity) Treatments prior to arrival: other (oxygen) [facility] PFSH: Medical History Acute on chronic diastolic (congestive) heart failure Atherosclerotic heart disease Benign essential hypertension with target blood pressure below 140/90 GERD (gastroesophageal reflux disease) Murmur, cardiac Type 2 diabetes mellitus Family History Mother Hypertension Social History Smoking and tobacco status: never smoked Alcohol intake: never Procedures Intubation sedative: none Laryngoscope: Twila ET Tube Size: 8 ET Tube Uncuffed: No Tube Secured Depth (cm): 24 Tube Secured Location: lips Tube Placement Confirmation: visualized tube passing through cords, equal breath sounds bilaterally, no breath sounds over epigastrium and confirmation by capnometry Patient Tolerated Procedure: well Intubation Complications: none Course Vital Signs: Vital signs: Vital Signs Temperature 97.6 F 01/13/22 11:06 Pulse Rate 105 H 01/13/22 19:45 Respiratory Rate 18 01/13/22 19:45 Blood Pressure 124/72 01/13/22 19:09 Pulse Oximetry 95 01/13/22 19:09 [facility] - General Adult Medical Decision Making Responded to CODE BLUE when I arrived patient was receiving compressions Dr. Low was in the room already running the code. I intubated patient with no difficulties rest the code was run by Dr. Low Lab Data : 01/13/22 03:27 01/13/22 03:27 Radiology Impressions Chest X-Ray 01/11/22 08:02 IMPRESSION: 1. Mild airspace opacity (atelectasis and/or pneumonia) at the left lung base. 2. Small left pleural effusion. Knee X-Ray 01/11/22 08:12 IMPRESSION: 1. No fractures or dislocations identified. 2. Degenerative joint disease as above. Laboratory Results WBC 9.0 10^3/uL (4.0-10.0) 01/11/22 08:00 RBC 4.41 10^6/uL (4.1-5.3) 01/11/22 08:00 Hgb 13.4 g/dL (11.7-16.6) 01/11/22 08:00 Hct 40.9 % (42.0-52.0) L 01/11/22 08:00 MCV 92.7 fl (80-94) 01/11/22 08:00 MCH 30.4 pg (28.0-34.0) 01/11/22 08:00 MCHC 32.8 g/dL (30.0-36.0) 01/11/22 08:00 RDW 12.5 % (12.1-15.1) 01/11/22 08:00 Plt Count 156 10^3/cmm (130-400) 01/11/22 08:00 MPV 11.9 fL (7.4-10.4) H 01/11/22 08:00 Neut % (Auto) 71.7 % 01/11/22 08:00 Lymph % (Auto) 16.8 % 01/11/22 08:00 [place] % (Auto) 9.7 % 01/11/22 08:00 Eos % (Auto) 1.2 % 01/11/22 08:00 Baso % (Auto) 0.4 % 01/11/22 08:00 Neut # (Auto) 6.46 10^3/uL (1.8-7.7) 01/11/22 08:00 Lymph # (Auto) 1.5 10^3/uL (0.8-4.8) 01/11/22 08:00 [place] # (Auto) 0.9 10^3/uL (0.2-0.9) 01/11/22 08:00 Eos # (Auto) 0.1 10^3/uL (0.0-0.8) 01/11/22 08:00 Baso # (Auto) 0.0 10^3/uL (0.0-0.1) 01/11/22 08:00 Nucleated RBC % (auto) 0 % 01/11/22 08:00 Nucleated RBCs # 0.0 /100WBC 01/11/22 08:00 APTT 28.2 SECONDS (23.9-36.7) 01/11/22 08:23 Sodium 133 mmol/L (136-145) L 01/11/22 08:00 Potassium 4.2 mmol/L (3.5-5.1) 01/11/22 08:00 Chloride 93 mmol/L (98-107) L 01/11/22 08:00 Carbon Dioxide 31 mmol/L (22-29) H 01/11/22 08:00 Anion Gap 13.2 (5-19) 01/11/22 08:00 BUN 20 mg/dL (8-23) 01/11/22 08:00 Creatinine 0.8 mg/dL (0.7-1.2) 01/11/22 08:00 GFR Calculation Not Reportable 01/11/22 08:00 Glucose 150 mg/dL (65-115) H 01/11/22 08:00 Calculated Osmolality 281 mOsm/kg (285-295) L 01/11/22 08:00 Calcium 10.8 mg/dL (8.5-10.5) H 01/11/22 08:00 Troponin T Baseline 46 ng/L (0-15) H 01/11/22 08:00 Troponin T 120 Minute 55.96 ng/L (0-15) H 01/11/22 10:05 Delta Troponin T 9.96 ABS# (0-10) 01/11/22 10:05 NT-Pro-B Natriuret Pep 9400 pg/mL (0-125) H 01/11/22 08:00 Urine Color Yellow (Yellow) 01/11/22 10:55 Urine Appearance Clear (CLEAR) 01/11/22 10:55 Urine pH 7 (5-7) 01/11/22 10:55 Ur Specific [place] 1.010 (1.005-1.030) 01/11/22 10:55 Urine Protein Trace (Negative) 01/11/22 10:55 Urine Glucose (UA) Norm (Normal) 01/11/22 10:55 Urine Ketones Negative (Negative) 01/11/22 10:55 Urine Blood Neg (Negative) 01/11/22 10:55 Urine Nitrate Negative (Negative) 01/11/22 10:55 Urine Bilirubin Neg (Negative) 01/11/22 10:55 Urine Urobilinogen Norm mg/dL (Negative) 01/11/22 10:55 Ur Leukocyte Esterase Negative (Negative) 01/11/22 10:55 Urine RBC None /hpf (0-2) 01/11/22 10:55 Urine WBC None /hpf (0-5) 01/11/22 10:55 Ur Squamous Epith Cells None /hpf (0-5) 01/11/22 10:55 Amorphous Sediment Not Reportable 01/11/22 10:55 Urine Bacteria None /hpf (NONE) 01/11/22 10:55 Hyaline Casts Rare /lpf 01/11/22 10:55 SARS-CoV-2 Ag (Rapid) Negative (Negative) 01/11/22 08:24 Discharge Plan Discharge Patient Disposition: Admitted As Inpatient Admit Provider: Zackary Ellington Clinical Impression: Non-ST elevated myocardial infarction (non-STEMI), Acute dyspnea, Paroxysmal atrial fibrillation Congestive heart failure with left ventricular diastolic dysfunction Qualifiers: Congestive heart failure chronicity: acute Qualified Code(s): I50.31 - Acute diastolic (congestive) heart failure Condition: Stable Coding Level of Care Code ED Crusher Tender for Valarie Galeana
--- NOTE | 2022-01-14 10:27 | P.DES_ITS ---
Discharge Providers DDS Date of Admission: 01/11/22 11:08 Date Summary Completed: 01/13/22 Attending Provider at Admission: Zackary Ellington MD Time of : 20:07 Attending Provider at Discharge: Zackary Ellington MD Primary Care Provider: YUE Phelan Diagnoses Hospital Diagnoses (1) Aortic valve stenosis: Reason for Visit Reason for Visit WEAKNESS; DIZZY Summary Date and Time of Date of : 01/13/22 Time of : 20:07 Summary Summary: ?HPI : 71 year old male with past medical history of hypertension, Covid 19 pneumonia, diabetes was on Metformin for a long time, has stopped taking sometime back, history of coronary artery disease (according to the patient prior angiogram done long time back had shown lesions ),Moderate , Came in with chief complaint of worsening shortness of breath with exertion going on for the last 3 weeks,He denies any associated chest pain, he is also complaining of worsening fatigue, has also been recently experiencing palpitation, as well as bilateral lower extremity swelling.? According to the patient he has not been feeling quite well after his brush Covid 19 back in July 2021. He denies any fever, cough, headache, nausea vomiting, abdominal pain, urinary complaints. Upon arrival in the ER he was worked up for above-mentioned complaint: Imaging studies: XR chest: Mild airspace opacity (atelectasis and/or pneumonia) at the left lung base. Pulmonary vasculature within normal limits. Pleural spaces: No visible pneumothorax. Small left pleural effusion. EKG: A. fib with RVR Recent 2D echo done as an outpatient: LV systolic function is moderate to severely reduced with EF of ?30-35% Moderate to severe global hypokinesis. severe A.S with aortic valve area of 0.63 cm squared with a mean gradient of 25 mmHg.?Consistent with low flow-low gradient severe aortic stenosis. Pertinent labs: WBC : 9 , H&H:13/40 , PLT : 156 , serum sodium 133 serum potassium 4.2, serum bicarb 31, BUN and serum creatinine 20 / 0.8 , baseline troponin 46, 2-hour troponin 55, 2H D : 9.96 , 6 H T : 53 , 6 H D : 7.51 , PRO BNP : 9400 Urinalysis clean rapid Covid negative Patient was given a dose of Lasix 30 in the ER. Cardiology was consulted by the ER physician Hospital Course He was admitted for the management Newly diagnosed cardiomyopathy with currently decompensated HFrEF,Newly diagnosed atrial fibrillation currently with RVR,NSTEMI type II: Likely secondary to A. fib with RVR and decompensated heart failure,HTN,DM. Patient was kept on I.V diuresis, rate controlling medications ,Anti coagulation, he was euvolemic,chest pain free,though had sob with exertion, well controlled heart rate, underwent CAG which showed Left Main: obstructive? 70% stenosis, Mid Left Anterior Descending: obstructive? 70% stenosis,.Proximal Circumflex: significant? 80% stenosis,.First Obtuse Marginal Branch Segment: severe? 90% stenosis, Px RCA [employer] DES[employer]ER. CTS was consulted as he had severe aortic valve stenosis and three-vessel coronary artery disease including 60% left main stenosis. As per , While clearly there is an increased risk related to the need for both valve replacement and bypass surgery, I do think he is a reasonable candidate for correction of both problems.? Apparently, he and family members have been in prior discussion and he wishes to consider transfer to [facility], for a bigger staff . It was explained to as well as his son By , that we had the adequate personnel, experience, and support services for his recommended procedure, though clearly he appears to be more comfortable at a larger facility. Plan was initiate the transfer to above mention facility [facility],on the unfortunate night of 01/13/2022, VONNIE TREVINO was called at 7:54 PM when the nurse went to check on him in his room,because she found him on the floor pulse less, CPR was initiated,when hooked to the monitor for rthym check he was found to be Ventricular fibrillation, ACLS Protocol was followed,Patient was also intubated during the code,in total 3 shocks were delivered during the code, along with 300 mg amiodarone as well as rounds of epinephrine,along with calcium chloride as well as bicarbonate, patient was unfortunately not able to be revived and was pronounced at 20:07 by the ER Physician Dr. Gay.Family was notified. Additional Data Was code activated?: Yes Autopsy requested?: No Advance directives?: No Hospice patient?: No Discharge Plan Discharge Patient Disposition: Condition: Probable Cause of Probable cause of : Cardiac arrest DS Attestations Time Spent in /Discharge Care*: greater than 30 min Quality - AMI: AMI present?: No Quality - Stroke: CVA present?: No Quality - VTE: VTE present?: No Deep Vein Thrombosis/Pulmonary Embolism Present on Admission: No Coding Level of Care Code Acute Decaler for Nickg Fwd Diagnoses Aortic valve stenosis I35.0
== END 2022-01-13 20:07 | disposition expired ==
LOC: ER 11:11 → CSU 11:20
PROVIDERS: Internal Medicine; Admitting Provider Internal Medicine; Emergency Provider Family Medicine; PCP Nurse Practitioner Family; Visit Provider Internal Medicine
PROC: 4A023N6 Measurement of Cardiac Sampling and Pressure, Right Heart, Percutaneous Approach (ICD-10-PCS; principal; 2022-01-13 07:00)
DX: I11.0 Hypertensive heart disease with heart failure (principal); I50.23 Acute on chronic systolic (congestive) heart failure; I21.A1 Myocardial infarction type 2; I46.2 Cardiac arrest due to underlying cardiac condition; I35.0 Nonrheumatic aortic (valve) stenosis; I49.01 Ventricular fibrillation; I25.10 Atherosclerotic heart disease of native coronary artery without angina pectoris; M10.9 Gout, unspecified; E11.9 Type 2 diabetes mellitus without complications; I48.0 Paroxysmal atrial fibrillation; J44.9 Chronic obstructive pulmonary disease, unspecified; K21.9 Gastro-esophageal reflux disease without esophagitis; I25.2 Old myocardial infarction; M17.12 Unilateral primary osteoarthritis, left knee; Z86.16 Personal history of COVID-19; Z79.82 Long term (current) use of aspirin; Z86.79 Personal history of other diseases of the circulatory system
CPT/HCPCS: 36415; 36416; 71045; 73562; 80048; 80061; 81001; 82962; 83036; 83735; 83880; 84443; 84484; 85025; 85730; 87426; 93005; 93308; 93325; 93456; 93460; 96365; 96372; 99285; C1751; C1769; C1887; C1894; J0171; J0282; J1160; J1644; J1650; J1940; J2250; J3010; J3475; J3490; J7030; Q0163; Q9967